=== PATIENT | female | born 1950 | race African-American/Black ===

== ENCOUNTER 2018-12-21 19:30 | Inpatient (IN) | payer OTHER ==
[~2018-12-21] VITALS: Ht 160 cm; Wt 83.0 kg
[2018-12-21 19:31] VITALS: BP 170/117
[2018-12-21 20:33] LABS: ABSOLUTE NEUTROPHILS 6.8 thou/uL (1.4-8.2); BASOPHILS 1.4 % (0.0-2.0); EOSINOPHILS 4.4 % (0.0-3.0); HEMOGLOBIN 10.8 gm/dL (12.0-15.0); LYMPHOCYTES 29.6 % (24.0-44.0); MCH 26.7 pg (26.0-34.0); MCHC 31.9 g/dL (28.0-37.0); MCV 83.7 fL (80.0-100.0); MONOCYTES 3.9 % (1.0-8.0); PLATELET COUNT 409 thou/uL (150-400); POLYS 60.7 % (36.0-66.0); RBC 4.06 mil/uL (4.20-5.00); RDW 14.4 % (10.5-14.5); WBC 11.2 thou/uL (4.0-11.0)
[2018-12-21 20:41] LABS: CREATININE 1.7 mg/dL (0.6-1.0); POTASSIUM 4.1 mmol/L (3.5-5.1)
[2018-12-21 20:49] LABS: TROPONIN-I 0.23 ng/mL (<0.06)
[2018-12-21 22:10] VITALS: BP 139/58
[2018-12-21 23:51] LABS: CHOLESTEROL 140 mg/dL (<200); HDL CHOLESTEROL 49 mg/dL (>40); LDL CHOLESTEROL 62 mg/dL (<100); TC:HDL 2.9 Ratio (Not establshd); TRIGLYCERIDE 149 mg/dL (<150); VLDL 30 mg/dL (<40)
[2018-12-22] VITALS (29 sets, daily range): BP systolic 104–174; BP diastolic 44–123
[2018-12-22 00:06] LABS: SERUM ASSESSMENT Clear
[2018-12-22] MEDS ORDERED: HYDROCHLOROTH12.5 M1 PO (03:54)
[2018-12-22] MEDS ORDERED: NIFEDIPINE ER90 MG PO (03:54)
[2018-12-22] MEDS ORDERED: LOPRESSOR50 PO (03:54)
[2018-12-22] MEDS ORDERED: ROSUVASTATIN CA10 MG PO (03:55)
[2018-12-22] MEDS ORDERED: ASPIR 8181 MG PO (03:55)
[2018-12-22] MEDS ORDERED: COZAAR 25 MG TA25 M1 PO (03:55)
[2018-12-22] MEDS ORDERED: NOVOLIN N100 UNIT/1 (04:04)
[2018-12-22] MEDS ORDERED: NOVOLIN R100 UNIT/1 (04:05)
--- NOTE | 2018-12-22 05:20 | NUR ---
RECEIVED REPORT FROM SHIRLENE ED RN AROUND 2142.PATIENT ARRIVED TO ROOM 215 AROUND 2200 ACCOMPANIED BY HER .COMPLAIN OF CHEST PAIN RATES 8.NITROGLYCERIN SL GIVEN X 2.PARTIAL PAIN RELIEF BUT PAIN COMES BACK.DOESN'T WANT TO TRY MORE OF NTG DUE TO SIDE EFFECT.MORPHINE GIVEN.TROPONIN IS TRENDING UP.DR GAGE WAS CALLED.NO NEW ORDERS BUT WILL SEE PATIENT IN THE MORNING.SPO2 IS IN THE 85% PLACED ON O2 2L NC THEN EVENTUALLY TO 4L NC.SERAFIN CHANDRA WAS HERE TO SEE PATIENT.NPO SINCE MIDNIGHT.MONITOR SHOWS SR.WILL CONTINUE POC.
--- NOTE | 2018-12-22 11:55 | EKG ---
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 12/22/18 1155 53 53 Grey Kendall MD, FAC /EPI
--- NOTE | 2018-12-22 12:06 | 2DMMODE ---
[facility] [address] [place] [address] 2 D/M-MODE ECHOCARDIOGRAM Name: MARTHA ESTES Room #: 215-P [facility] IN .R.#: [id number] Admission: 12/21/18 Attend Phys: Thierry Muro, Discharge: Date of : 48 Report #: [id number] THIS REPORT FOR: //name// APPROVED REPORT Study performed: 12/22/2018 09:47:01 EXAM: Comprehensive 2D, Doppler, and color-flow Echocardiogram Patient Location: Bedside Room #: [facility] Status: on-call BSA: 1.84 HR: 84 bpm BP: 141/55 mmHg Rhythm: NSR Other Information Study Quality: Adequate Technically limited study due to patient's pain and nausea. Risk Factors: Cardiac Risk Factors: HTN, Hyperlipidemia, DM, FHX of CAD Indications Dyspnea Chest Pain NSTEMI 2D Dimensions IVSd: 10.94 (7-11mm) LVOT Diam: 16.70 (18-24mm) LVDd: 36.68 mm Sinus of Valsalva: 17.00 mm PWd: 10.70 (7-11mm) Ascending Ao: 23.49 (22-36mm) LVDs: 24.98 (25-40mm) Aortic Root: 26.96 mm LV Single Plane 4CH: 67.68 % LV Single Plane 2CH: 58.84 % Biplane EF: 65.6 % Volumes Left Atrial Volume (Systole) Single Plane 4CH: 55.19 mL Single Plane 2CH: 40.12 mL LA ESV Index: 29.00 mL/m2 Aortic Valve [facility] [address] 2 D/M-MODE ECHOCARDIOGRAM Name: ESTESMARTHA M Room #: 215-P [facility] IN ..#: [id number] Admission: 12/21/18 Attend Phys: Thierry Muro, Discharge: Date of : 48 Report #: [id number] AoV Peak Louis.: 1.87 m/s AO Peak Gr.: 14.13 mmHg LVOT Max P.00 mmHg LVOT Max V: 1.00 m/s ANGELES Vmax: 1.17 cm2 AI Vmax: 4.11 m/s AI Heard: 2.63 m/s2 AI PHT: 468.57 ms Mitral Valve E/A Ratio: 0.7 MV Decel. Time: 270.86 ms MV E Max Louis.: 1.00 m/s MV A Louis.: 1.45 m/s MV PHT: 78.55 ms IVRT: 69.20 ms TDI E/Lateral E': 14.29 E/Medial E': 11.11 Medial E' Louis.: 0.09 m/s Lateral E' Louis.: 0.07 m/s Pulmonary Valve PV Peak Louis.: 0.93 m/s PV Peak Gr.: 3.50 mmHg Pulmonary Vein P Vein S: 0.67 m/s P Vein A: 0.27 m/s P Vein D: 0.40 m/s P Vein A Dur.: 76.1 msec P Vein S/D Ratio: 1.67 Tricuspid Valve TR Peak Louis.: 3.47 m/s RAP Estimate: 7.00 mmHg TR Peak Gr.: 48.05 mmHg PA Pressure: 55.00 mmHg Left Ventricle The left ventricle is normal size. There is normal LV segmental wall motion. There is normal left ventricular wall thickness. The left ventricular systolic function is normal. The left ventricular ejection fraction is within the normal range. LVEF is 60-65%. Mild diastolic dysfunction is present (impaired relaxation pattern). Right Ventricle The right ventricle is normal size. The right ventricular systolic function is normal. [facility] [address] [place] [address] 2 D/M-MODE ECHOCARDIOGRAM Name: MARTHA ESTES Room #: 215-P [facility] IN [facility]#: [id number] Admission: 12/21/18 Attend Phys: Thierry Muro, Discharge: Date of : 48 Report #: [id number] Atria The left atrium size is normal. The right atrium size is normal. Aortic Valve The aortic valve is mildly calcified Mild to moderate aortic regurgitation. There is no aortic valvular stenosis. Mitral Valve There is mitral annular calcification. Mild mitral regurgitation. No evidence of mitral valve stenosis. Tricuspid Valve The tricuspid valve is normal in structure. Mild tricuspid regurgitation. Pulmonary artery pressure is 50 mmHg. Pulmonic Valve The pulmonary valve is normal in structure. There is no pulmonic valvular regurgitation. Great Vessels The aortic root is normal in size. The ascending aorta is normal in size. IVC is normal in size and collapses >50% with inspiration. Pericardium There is no pericardial effusion. <Conclusion> The left ventricular systolic function is normal. There is normal LV segmental wall motion. LVEF is 60-65%. Mild diastolic dysfunction The aortic valve is mildly calcified, no stenosis. Mild to moderate aortic regurgitation. There is mitral annular calcification. Mild mitral regurgitation. Mild tricuspid regurgitation. Pulmonary artery pressure of 50 mmHg. There is no pericardial effusion. <ELECTRONICALLY SIGNED> By: Grey Kendall MD, FACC 12/22/18 1205 1205 1205 Grey Kendall MD, FACC /INF
--- NOTE | 2018-12-22 14:15 | NUR ---
PT ALERT AND ORIENTED THIS MORNING. RECEIVED PRN PAIN MED FOR CHEST PAIN WITH PARTIAL RELIEF. CRITICAL LAB REPORTED TO [place]. CO FOUNDER AND CTO. WENT FOR STENT PLACEMENT THIS AM. ORDERS GIVEN TO TRANSFER PT TO ICU. REPORT CALLED IN TO ADALBERTO RILEY.
--- NOTE | 2018-12-22 14:18 | NUR ---
Patient arrived to ICU room 237 post cardiac cath. Upon arrival patient was nauseated, vomitting thin, clear emesis. Pressure held to right groin site during vomitting episode. Small hemotoma to right groin, continue hard pressure continued for 15 minutes by analyst microbiology lab staff. Assessed by analyst microbiology lab staff and RN, hematoma lessened. Will continue with frequent groin site checks per protocol and instructed patient to alert nursing of any new changes. and son at bedside. Continue to monitor closely.
--- NOTE | 2018-12-22 14:31 | CATHLAB ---
[facility] [address] [place] [address] INVASIVE PROCEDURE REPORT Name: MARTHA ESTES Room #: 237-P [facility] IN [facility]#: [id number] Admission: 12/21/18 Attend Phys: Thierry Muro, Discharge: Date of : 48 Report #: [id number] THIS REPORT FOR: //name// APPROVED REPORT Study performed: 12/22/2018 11:30:06 Patient Details Patient Status: In-Patient Room #: 215 The patient is a 67 year-old female Event Personnel Grey Kendall Molding Plasterer, Terry Tilley RN RN, Mari Llamas RTR, BRAKESHOE REPAIRER Monitor, Ozzy Richey RTR Scrub, Kimberly Griffith RTR Scrub Procedures Performed Art Access - R femoral artery* Left Heart Cath w/or w/o Coronaries [id number] [facility] w/wo Plasty Single CIRC [id number] Hemostasis w/ Angioseal Indication Chest pain Procedure Narrative The patient was brought urgently to the Cardiac Catheterization Laboratory and was prepped and draped in a sterile manner. The Right Groin^ was infiltrated with 1% Lidocaine subcutaneous anesthesia. A PINNACLE 6FR Sheath #[id number] sheath was inserted into the RFA^. Coronary angiography was performed using coronary diagnostic catheters. The right coronary system was accessed and visualized with a JR4 catheter. The left coronary system was accessed and visualized with a JL4 catheter. Left ventricular/Aortic Valve gradient assessed via catheter pullback. Closure device was deployed with a 6 Fr ANGIOSEAL 6FR #[id number]. There was no hematoma. Intraoperative Conscious Sedation No sedation given. Fluoro Time: 7.23 minutes Dose: DAP 55007.70 cGycm2 1705 mGy Contrast Type and Amount: Omnipaque 145 ml Coronary Angiography The patient's coronary anatomy is co- dominant. [facility] [place] [address] INVASIVE PROCEDURE REPORT Name: MARTHA ESTES Room #: 237-P [facility] IN [facility].#: [id number] Admission: 12/21/18 Attend Phys: Thierry Muro, Discharge: Date of : 48 Report #: [id number] Diagnostic Cath Left Main Normal left main LAD Minimal plaquing in the midportion of the left anterior descending Diagonal 1 Small first diagonal branch, angiographically normal Diagonal 2 Small second diagonal branch, angiographically normal Circumflex Critical 99% stenosis in the proximal circumflex. ELIZABETH 2 flow OM1 Large first marginal branch, angiographically normal OM2 Distally arising second marginal branch, mild plaquing Right Coronary Long tubular 75-80% stenosis involving most of the midportion of the right coronary R PDA Moderate size posterior descending branch, mild plaquing Left Ventriculography Left Ventriculography was not performed. Hemodynamics The aortic pressure is 134/56 mmHg with a mean of 81 mmHg. The left ventricular pressure is 160/40 mmHg with a mean of mmHg. The left ventricular end diastolic pressure is 41 mmHg. PCI Technique Lesion Anticoagulation was achieved with Heparin, Integrilin. Patient was preloaded with Effient. Percutaneous coronary intervention was performed on the proximal circumflex artery segment. The lesion stenosis prior to intervention was 99% with ELIZABETH 2 flow. A LAUNCHER 6FR EBU 3.5 #[id number] Guide Catheter was used to engage the ostium. A Luge Wire .014 x 182CM #[id number] Interventional Guidewire was used to cross the lesion. BALLOON DILATION A Balloon catheter Euphora RX 2.25 x 15 #[id number] was inserted and inflated up to 16.00atm for 31seconds. Repeat angiography revealed the following post-dilatation results: moderate residual stenosis. Additional Inflation: 16.00atm for 18seconds. STENT DEPLOYMENT A drug-eluting stent RESOLUTE MAYELA RX 2.5 X 18 #[id number] was inserted and inflated up to 16.00atm for 32seconds. POST STENT DEPLOYMENT BALLOON DILATION [facility] [address] [place] [address] INVASIVE PROCEDURE REPORT Name: MARTHA ESTES Room #: 237-P [facility] IN ..#: [id number] Admission: 12/21/18 Attend Phys: Thierry Muro, Discharge: Date of : 48 Report #: [id number] A Balloon catheter TREK NC RX 2.5 X 15 #[id number] was inserted and inflated up to 20.00atm for 30seconds. Additional Inflation: 22.00atm for 28seconds. A Balloon catheter Trek NC RX 2.75 x 12 was inserted and inflated up to 22 erin for 32 seconds. Additional inflation: 22 erin for 30 seconds. Additional inflation: 22 erin for 20 seconds. Final angiography reveals 0 % stenosis with ELIZABETH 3 flow. Conclusion 1. Congestive heart failure; significantly elevated left heart filling pressures 2. Normal left main 3. Normal LAD 4. Critical proximal codominant circumflex. 99% treated with a 2.5 x 18 mm Resolute stent, post-dilated to 2.9mm 5. Codominant right coronary with long tubular 75-80% mid vessel stenosis. This will be followed closely, consider intervention at a later date. Recommendations Cardiac Rehabilitation Referral Aggressive Medical Therapy <ELECTRONICALLY SIGNED> By: Grey Kendall MD, [facility] 12/22/18 1431 143 143 Grey Kendall MD, [facility] /INF
--- NOTE | 2018-12-22 18:54 | NUR ---
PATIENT ALERT AND ORIENTED X4, NO COMPLAINTS OF PAIN. ON 3L NASAL CANNULA. TOLERATING DIET WITH NO NAUSA/VOMITING. GIANG PATENT AND DRAINING. BLOOD SUGAR MONITORED. RIGHT GROIN SITE SHOWED NO INCREASED BLEEDING. SMALL HEMATOMA PRESENT. PATIENT AND FAMILY EDUCATED ON THE PLAN OF CARE. NO SIGNS OF ACUTE DISTRESS NOTED AT THIS TIME. WILL CONTINUE TO MONITOR.
[2018-12-23] VITALS (19 sets, daily range): BP systolic 116–160; BP diastolic 30–78
[2018-12-23 01:07] LABS: GLYCOHEMOGLOBIN (HGB A1C) 6.6 % (4.8-5.6)
--- NOTE | 2018-12-23 04:58 | NUR ---
RECEIVED REPORT FROM OSVALDO GLOVER AND ASSUMED PATIENT CARE AT 1900. PATIENT AAOX4 AND NOTED TO BE SR ON THE MONITOR. PATIENT ASSESSED POST CATH PROCEDURE ORDERED. NO NEW SIGNS OF BLEEDING OR HEMATOMA NOTED. PATIENT ONLY COMPLAINED OF PAIN ONCE 5/10 AT SITE AND HYDROCODONE GIVEN. PATIENT HAD NO FURTHER C/O NAUSEA. VS REMAINED STABLE AND NO ACUTE EVENTS OCCURRED. PATIENT AND FAMILY UPDATED ON CARE PLAN AND EDUCATED ON PROCEDURE. HOURLY ROUNDING COMPLETED AND PATIENT MONITORED CLOSELY THROUGHOUT THIS SHIFT.
[2018-12-23 05:17] LABS: HEMATOCRIT 27.5 % (37.0-47.0); MCH 27.3 pg (26.0-34.0); MCHC 32.7 g/dL (28.0-37.0); MCV 83.6 fL (80.0-100.0); RBC 3.29 mil/uL (4.20-5.00); RDW 13.9 % (10.5-14.5); WBC 10.3 thou/uL (4.0-11.0)
[2018-12-23 05:34] LABS: ALBUMIN 3.2 g/dL (3.4-5.0); CALCIUM 9.1 mg/dL (8.5-10.1); CREATININE 2.5 mg/dL (0.6-1.0); MAGNESIUM 1.7 mg/dL (1.8-2.4); POTASSIUM 4.2 mmol/L (3.5-5.1); TOTAL BILIRUBIN 0.7 mg/dL (<0.1-1.0); TOTAL PROTEIN 7.3 g/dL (6.4-8.2)
[2018-12-23 05:36] LABS: TROPONIN-I 4.89 ng/mL (<0.06)
--- NOTE | 2018-12-23 10:40 | NUR ---
Pt is alert, oriented x4. No C/O chest pain. LS clear. O2 sat 93 to 95% w/ 4L of oxygen. NSR on monitor. SBP was maintained bewteen 140 to 150s. This nurse heard murmur on R stermum & 2nd Intercostal location but pt stated that she did not have murmur. No edema present. 2/[address] Will discontinue per order. 1000-Consult was notified and Dr. Sanchez returned to the call
--- NOTE | 2018-12-23 12:24 | EKG ---
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: FREDRICK : 1950 Requested By: Grey Kendall Order Number: [id number] MD: Grey Kendall Measurements Intervals [place] Rate: 73 P: 70 [place]: 140 QRS: 68 QRSD: 89 T: 106 QT: 381 QTc: 420 Interpretive Statements Sinus rhythm Nonspecific ST segment abnormality Compared to ECG 12/21/2018 19:54:07 Nonspecific change in the ST and T-wave segments Electronically Signed On 12-23-2018 12:24:36 CDT by Grey Kendall [email or web address] <ELECTRONICALLY SIGNED> By: Grey Kendall MD, [facility] 12/23/18 1224 1417 1417 Grey Kendall MD, [facility] /EPI
--- NOTE | 2018-12-23 12:30 | EKG ---
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 Representative Uniforms: Kathy LARKIN : 1950 Requested By: Grey Kendall Order Number: [id number] MD: Grey Kendall Measurements Intervals [place] Rate: 82 P: 67 [place]: 129 QRS: 62 QRSD: 95 T: 104 QT: 354 QTc: 414 Interpretive Statements Sinus rhythm Nonspecific ST segment abnormality Compared to ECG 12/21/2018 19:54:07 ST segment abnormality is less pronounced Electronically Signed On 12-23-2018 12:30:00 CDT by Grey Kendall [email or web address] <ELECTRONICALLY SIGNED> By: Grey Kendall MD, [facility] 12/23/18 1230 0829 8 Grey Kendall MD, [facility] /EPI
--- NOTE | 2018-12-23 16:40 | NUR ---
Andressa note: 1500-Pt was informed to be transferred to #210 1600-Report was given to CCU RN and pt was transferred to CCU, #210. Pt was stable. VSS. Pt's all belongins were w/ pt. Pt was transferred by CCU bed w/ CCU monitor. Dressing from R groin are was removed prior to the transfer. Family member accompanied pt during the transfer.
--- NOTE | 2018-12-23 17:27 | NUR ---
PATIENT ARRIVED FROM TIMBER REPAIRER, ALERT AND ORIENTED X4. EMOTIANAL AND TEARY EYES FAMILY AT BEDSIDE COMFORTING HIM. RT GRION SITE D/C/I. MORNING MEDS GIVEN, BP STABLE, SEE POST CARDIAC VS. ADMISSION COMPLETED AND WILL CONTINUE WITH POC.
[2018-12-24] VITALS (22 sets, daily range): BP systolic 112–163; BP diastolic 44–91
[2018-12-24 05:16] LABS: HEMATOCRIT 26.7 % (37.0-47.0); HEMOGLOBIN 8.5 gm/dL (12.0-15.0); MCH 26.8 pg (26.0-34.0); MCHC 31.8 g/dL (28.0-37.0); MCV 84.2 fL (80.0-100.0); RBC 3.18 mil/uL (4.20-5.00); RDW 14.1 % (10.5-14.5); WBC 14.9 thou/uL (4.0-11.0)
[2018-12-24 05:28] LABS: ABSOLUTE RETIC COUNT 0.1249 10^6/uL; OBSERVED RETIC COUNT 3.96 % (0.6-2.6)
[2018-12-24 05:33] LABS: CALCIUM 8.3 mg/dL (8.5-10.1); MAGNESIUM 2.2 mg/dL (1.8-2.4); PHOSPHORUS 4.8 mg/dL (2.5-4.9); POTASSIUM 4.6 mmol/L (3.5-5.1)
[2018-12-24 05:35] LABS: % SATURATION 7 % (20-39); IRON 22 ug/dL (50-170); TIBC 297 ug/dL (250-450)
[2018-12-24 05:36] LABS: CREATININE 4.1 mg/dL (0.6-1.0)
[2018-12-24 06:04] LABS: FOLIC ACID 19.7 ng/mL (8.6-58.9)
--- NOTE | 2018-12-24 08:24 | NUR ---
ASSESSMENTS CHARTED, MEDS CHARTED. TRANSFERED FROM ICU TO CCU DURING DAY. PATIENT'S GIANG WAS OUT DURING AFTERNOON, PATIENT HAD ONLY HAD MINIMAL URINE OUT SINCE ARRIVAL. AWARE OF LOW URINE OUTPUT. PATIENT HAD FLUID RUNNING UNTIL SHE STARTED TO C/O SOB, SOUNDED WET IN BASES, STOPPED FLUIDS, RECEIVED ORDERS FROM ANASTACIO. IV WAS DISLODGED, MULTIPLE ATTEMPTS WERE TRIED TO NO AVAIL. CXR SHOWED NEW INTERSTITIAL PULM EDEMA. LABS SHOWED INCREASED CREATININE. LEFT MESSAGE FOR VASCULAR ACCESS. WAITING FOR NEPHROLOGY DOCTOR TO ADVISE NEXT COURSE OF TREATMENT. GAVE REPORT TO DAY NURSE TO CONTINUE CARE.
--- NOTE | 2018-12-24 08:52 | EKG ---
[address] [place] [address] ELECTROCARDIOGRAM REPORT Name: MARTHA ESTES Room #: 210- ADM IN M.R.#: [id number] Admission: 12/21/18 Attend Phys: Halina Jeronimo MD Discharge: Date of : 48 Report #: [id number] THIS REPORT FOR: //name// [facility] Test Date: 2018-12-24 Test Time: 08:06:53 Pat Name: MARTHA ESTES Department: Room: 210 Gender: F Boiler Operator: MARYBEL : 1950 Requested By: Grey Kendall Order Number: [id number] MD: Grey Kendall Measurements Intervals [place] Rate: 83 P: 63 [place]: 129 QRS: 72 QRSD: 99 T: 67 QT: 381 QTc: 448 Interpretive Statements Sinus rhythm Nonspecific ST segment abnormality Compared to ECG 12/23/2018 08:29:09 No significant change was found Electronically Signed On 12-24-2018 8:51:52 CDT by Grey Kendall [email or web address] <ELECTRONICALLY SIGNED> By: Grey Kendall MD, [facility] 12/24/18 0851 5 5 Grey Kendall MD, [facility] /EPI
--- NOTE | 2018-12-24 09:43 | NUR ---
VAT CONSULTED FOR A PICC FOR THIS PT. 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 WILL REVIEW HER LABS SHE IS A CKD3 AND MAY NEED A CL OVER A PICC. PT IS STABLE AND IS ABLE TO GET LASIX.
--- NOTE | 2018-12-24 10:57 | NUR ---
Assess due to pt admit with chest pain, nstemi, hx diabetes, htn, hyperlipidemia. STANISLAW s/p contrast, creatinine rising. Renal following. Pt states no significant wt changes. Appetite is usually good but down 25-50% past few days. Would like to trial some glucerna shakes until appetite returns-will order. Low nutrition risk
--- NOTE | 2018-12-24 11:28 | NUR ---
ASSUMED CARE AT SHIFT CAHNGE, ALERT AND ORIENTED X4. PATIENT SOB AND BREATHING 28-30/MIN. DR GOLDEN AT BEDSIDE AND ORDERS CL TO BE INSERTED AFTER SEVERAL PIV ATTEMPTS FAILED. PO LASIX GIVEN. IV TEAM INSERTED A PIV, IV LASIX GIVEN AND GIANG CATH INSERTED FOR ACCURATE I&O. AND WILL CONTINUE WITH POC.
--- NOTE | 2018-12-24 14:24 | NUR ---
VAT CONSULTED FOR CENTRAL ACCESS FOR THIS PT. CREAT 4.1 GFR 13. FAM HX OF ESRD WITH DIALYSIS. PLACED A 20G 2.5 INCH PIV IN RT CEPHALIC THIS AM FOR LASIX PT WAS STABLE. ONLY IV MEDS WERE LASIX. ADVISED RN TO CALL IF PT TSF TO ICU AND A CL WOULD BE PLACED. PT TSF TO 243 AND TIME OUT DONE WITH RN AT . PT HAD CONSENTED PRIOR. PER POLICY FOR CKD3 PT STATUS A CL PLACED RT IJ X1 ATTEMPT WITH US GUIDE. LINE TRIMMED AT 24CM AND INSERTED TO 18CM WITH A BRISK BLOOD RETURN. CXR REVEALED TIP AT THE CAJ/RT ATRIAL APPENDAGE. TOWARDS END OF PROCEDURE PT BECAME ANXIOUS DUE TO THE STERILE DRAPE COVERING HER, LINE DRESSING REINFORCED AND WILL CHANGE ONCE PT IS CALMED.
[2018-12-24 15:04] LABS: BE(vivo) -8.7 mmol/L (-2 to +3); PCO2 36.1 mmHg (35.0-45.0); PO2 89.7 mmHg (80.0-100.0)
[2018-12-24 15:05] LABS: pH 7.292 (7.360-7.450)
--- NOTE | 2018-12-24 15:10 | NUR ---
TRANSERRED TO ICU THIS AT 1226 FROM CCU BY WHEELCHAIR. PT VERY SOA ON ARRIVAL O2 SATS IN 70'S. TITRATED O2 UP TO 15L/NC AND O2 SATS IMPROVED TO 90'S. IV TEAM HERE TO CENTRAL LINE PLACEMENT. FOLLOWING CENTRAL LINE PLACEMENT PT VERY RESTLESS, THRASHING IN BED, O2 SATS DECREASED TO 60'S, HR DECREASED TO 50'S. DR GOLDEN AND LEONADR PAGED AND UPDATED. PLACED ON BIPAP. O2 SATS INCREASED TO 99% AND HR INCREASED TO 70'S. CONSULT PLACED TO PULMONARY. PT NOW RESTING WITH RR IN 20'S AND STABLE O2 SATS. TO CHECK ABG PER ORDER. WILL CONTINUE TO MONITOR PATIENT.
--- NOTE | 2018-12-24 19:42 | NUR ---
DECREASED HOURLY URINE OUTPUT. DR GOLDEN NOTIFIED. ORDER RECIEVED FOR TEMPORARY DIALYSIS CATHETER PLACEMENT AND DIALYSIS. TO I.R. FOR DIALYSIS LINE PLACEMENT AND DIALYSIS INITIATED BY TELEGRAPH REPEATER TECHNICIAN ON RETURN. PT'S FAMILY AT BEDSIDE AND UPDATED.
[2018-12-24 22:00] LABS: HCO3 24.6 mmol/L (22.0-26.0); PCO2 34.8 mmHg (35.0-45.0); PO2 377.6 mmHg (80.0-100.0); pH 7.467 (7.360-7.450); sO2 99.8 % (92.0-98.0)
[2018-12-25] VITALS (24 sets, daily range): BP systolic 99–172; BP diastolic 35–68
[2018-12-25 05:25] LABS: ABSOLUTE NEUTROPHILS 8.8 thou/uL (1.4-8.2)
[2018-12-25 05:30] LABS: BASOPHILS 0.4 % (0.0-2.0); EOSINOPHILS 0.4 % (0.0-3.0); HEMATOCRIT 20.4 % (37.0-47.0); HEMOGLOBIN 6.9 gm/dL (12.0-15.0); LYMPHOCYTES 12.1 % (24.0-44.0); MCH 28.3 pg (26.0-34.0); MCHC 34.1 g/dL (28.0-37.0); MONOCYTES 7.2 % (1.0-8.0); POLYS 79.9 % (36.0-66.0); RBC 2.46 mil/uL (4.20-5.00); RDW 13.8 % (10.5-14.5); WBC 10.9 thou/uL (4.0-11.0)
[2018-12-25 05:34] LABS: ALBUMIN 2.6 g/dL (3.4-5.0); CREATININE 3.3 mg/dL (0.6-1.0); POTASSIUM 4.1 mmol/L (3.5-5.1)
[2018-12-25 05:40] LABS: PLATELET COUNT 255 thou/uL (150-400)
--- NOTE | 2018-12-25 06:00 | NUR ---
PT AWAKE AND ALERT. SLE[PT MOST OF NOCT. DIALYSIS LAST NOCT. 2 LITERS REMOVED. WILL BE DIALYSES THIS AM. LUNGS DIMINISHED AND ESS CLEAR. 60 CC UO THIS SHIFT. A VERY DELIGHTFUL LITTLE LADY. WILL CONT TO MONITOR
--- NOTE | 2018-12-25 07:36 | NUR ---
Renal U/S at bedside. Dr. Hernández on rounds. Will recheck H/H prior to start of hemoodialysis d/t inconsistancy w/ previous labs. If <7.0, transfuse.
[2018-12-25 08:09] LABS: HEP B SURFACE Ab(ANTI-HBS Non Reactive (()); HEPATITIS B SURFACE AG Negative (Negative)
[2018-12-25 09:00] LABS: HEMOGLOBIN 6.9 gm/dL (12.0-15.0)
--- NOTE | 2018-12-25 09:48 | NUR ---
patient admits with chest pain, rec cardiac cath, transferred to ICU then CCU. While at CCU developed worsening renal fuction and dyspnea. She transfer to ICU, currently on BIPAP and rec new tx of dialysis. Rn reports no phone numbers for family which she plans to obtain today when off BIPAP. 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 CM following for dc planning.
--- NOTE | 2018-12-25 10:26 | NUR ---
Hemoglobin 6.9; 1 unit PRBCs given by Zach RILEYalumina refinery operator nurse as ordered.
--- NOTE | 2018-12-25 19:34 | NUR ---
Shift summary: Oriented x 4. Pain controlled. Medicated x 1 with Hydrocodone for headache pain. VSS. Afebrile. SR. O2 5L NC. Lungs clear with DBS bases. Tolerating diet, poor appetite. Renteria with 180ml uop this shift. Hemodialysis treatment #2 today, 2L removed. 1u PRBCs given for Hgb 6.9 by steffen house supervisor. Up to commode and chair for bath this evening, tolerated well. Pt states she feels exhausted. Plan of care reviewed and updated as able.
[2018-12-26] VITALS (20 sets, daily range): BP systolic 99–160; BP diastolic 39–67
[2018-12-26 06:10] LABS: ALBUMIN 2.6 g/dL (3.4-5.0); CALCIUM 8.2 mg/dL (8.5-10.1); CREATININE 3.3 mg/dL (0.6-1.0); PHOSPHORUS 4.3 mg/dL (2.5-4.9); POTASSIUM 3.7 mmol/L (3.5-5.1)
[2018-12-26 06:17] LABS: HEMATOCRIT 28.6 % (37.0-47.0); MCHC 32.1 g/dL (28.0-37.0); MCV 83.9 fL (80.0-100.0); RBC 3.41 mil/uL (4.20-5.00); RDW 13.9 % (10.5-14.5)
[2018-12-26 06:34] LABS: HEMOGLOBIN 9.2 gm/dL (12.0-15.0)
--- NOTE | 2018-12-26 14:09 | NUR ---
DC planning visit made with pt and spouse at bedside. Pt is currently in ICU. She is feeling better today. Spouse's contact number confirmed as their home phone. Dtr Jerrica to be added if we can't reach Calvin. Pt is a&ox4 and indicates that she was indep with gait and adl's prior to admission. She does not have any dme,hh or snf history. She reports struggling with the 10 steps to enter the home and 7 steps up to their bedroom. Each set has a handrail. 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 She is currently down to 2lnc O2 and bipap prn. Her spouse does the driving. She is receptive to HH or SNF if needed. Medicare options discussed. She denies HH preference. She is familiar with [facility] [place]. PT/OT evals pending. Will follow.
--- NOTE | 2018-12-26 17:50 | NUR ---
Shift summary: Pt making steady progress. Neuro intact. Up in chair x 6 hours today. Denies pain. PT/OT order rec'd. NSR. VSS. Afebrile. No edema. s/p Stent CX. Effient alone. No aspirin secondary to anemia. H/H stable. O2 titrated down to 3L. Lungs clear with diminished breath sounds in the bases. Tolerating diet, appetite improving. Accucheck achs. Has not had BM since admission. Renteria with 700ml pale yellow urine this shift. Lasix 60mg IV BID started this am. Hemodialysis held this am. Plan of care reviewed and updated as able. OK's per Siri Ring, Linda, Edgar, and Marlon for pt to transfer out to CCU. Awaiting bed assignment.
--- NOTE | 2018-12-26 18:35 | NUR ---
Report called to Yeny RILEY on CCU. Pt to transfer to room 214p. Family notified of transfer.
--- NOTE | 2018-12-26 22:43 | NUR ---
ASSUMED PT CARE AT 1900 WITH NO SIGN 0F DISTRESS NOTED, PT IS ALERT AND ORIENTED. DENIES ANY NEEDS AT THIS TIME. ASSESSMENT COMPLETED AND CHARTED. PT IS STABLE. DENIES ANY PAIN. SCHEDULED MEDS ADMINISTERED TO PT. PT TOLERATED PO INTAKE. REPORT IS GIVEN TO THE RELEVING RN AT 2230.
[2018-12-27 05:21] VITALS: BP 112/88
[2018-12-27 06:06] LABS: HEMATOCRIT 32.1 % (37.0-47.0); HEMOGLOBIN 10.5 gm/dL (12.0-15.0); MCH 27.3 pg (26.0-34.0); MCHC 32.7 g/dL (28.0-37.0); MCV 83.6 fL (80.0-100.0); RBC 3.84 mil/uL (4.20-5.00); RDW 13.9 % (10.5-14.5); WBC 12.1 thou/uL (4.0-11.0)
[2018-12-27 06:31] LABS: ALBUMIN 2.7 g/dL (3.4-5.0); CALCIUM 8.6 mg/dL (8.5-10.1); PHOSPHORUS 4.3 mg/dL (2.5-4.9)
[2018-12-27 07:49] VITALS: BP 155/51
[2018-12-27 12:21] VITALS: BP 151/64
--- NOTE | 2018-12-27 14:58 | NUR ---
Case discussed with the care team. Pt evaluated by therapy today and did well. Hoping to dc to home when medically ready. Pt still on 3liters of o2 and hoping to wean off prior to dc. Will reassess for possible hh referral tomorrow.
--- NOTE | 2018-12-27 15:33 | NUR ---
ASSESSMENT CHARTED. PT ALERT AND ORIENTED. VSS. REPORT HAVING LEFT HIP AND LEG PAIN. PRN MUSCLE RELAXER GIVEN WITH NO RELIEF. DR. BRUCE NOTIFIED. WILL CONTINUE TO MONITOR.
[2018-12-27 16:30] VITALS: BP 161/70
[2018-12-27 19:45] VITALS: BP 153/50
[2018-12-28 00:04] VITALS: BP 166/67
--- NOTE | 2018-12-28 04:25 | NUR ---
ASSESSMENT DOCUMENTED.PT BEEN RESTING IN BED.A/OX4.VSS.C/O PAIN TO LEFT LEG,XRAY TO FEMUR AND US VENOUS ORDERED.NO THROMBOSIS OR FX NOTED ON XRAY.PAIN MEDS GIVEN PER ORDERS WITH PARTIAL RELEIF.MUSCLE RELAXER GIVEN WELL HEATING PAD THAT RELIEVES PAIN SOME MORE.PT STATES FEELS LIKE SHE HAS PULLED MUSCLE.NO SWELLING OR CHANGE IN COLOR NOTED.SENSATION INTACT.2+ PULSES PRESENT.ON O2 AT 2LITERS PNC,NO RESP DSITRESS.PT DENIES ANY OTHER NEEDS AT THIS TIME.WILL CONT TO MONITOR PER POC.
[2018-12-28 04:45] VITALS: BP 159/59
[2018-12-28 05:09] LABS: ALBUMIN 2.9 g/dL (3.4-5.0); CALCIUM 9.1 mg/dL (8.5-10.1); CREATININE 2.5 mg/dL (0.6-1.0); PHOSPHORUS 5.4 mg/dL (2.5-4.9); POTASSIUM 4.3 mmol/L (3.5-5.1)
[2018-12-28 07:42] VITALS: BP 155/61
[2018-12-28 08:23] LABS: HEMATOCRIT 32.1 % (37.0-47.0); HEMOGLOBIN 10.4 gm/dL (12.0-15.0); MCH 27.3 pg (26.0-34.0); MCHC 32.3 g/dL (28.0-37.0); MCV 84.7 fL (80.0-100.0); RBC 3.79 mil/uL (4.20-5.00); WBC 15.4 thou/uL (4.0-11.0)
[2018-12-28 11:11] VITALS: BP 149/56
[2018-12-28 14:59] VITALS: BP 147/62
--- NOTE | 2018-12-28 17:06 | NUR ---
PT ALERT AND ORIENTED. VSS. REPORT HAVING LEFT KNEE PAIN. PRN PAIN MED GIVEN WITH PARTIAL RELIEF. MD AWARE. NEW ORDERS NOTED. WILL CONTINUE TO MONITOR.
[2018-12-28 19:34] VITALS: BP 120/42
[2018-12-29 03:50] VITALS: BP 118/37
--- NOTE | 2018-12-29 05:08 | NUR ---
ASSESSMENT DOCUMENTED.PT BEEN RESTING IN NO ACUTE DISTRESS.A/OX4.VSS.O2 AT 1LITERS PNC,SATS [place].VOIDING PER BSC.PAIN MEDS GIVEN FOR LEFT LEG WITH PARTIAL RELIEF.HEATING PAD OFFERED.PT STATED PAIN TO LEFT LEG IS BETTER CONTROLLED THAN IT WAS YESTERDAY.POC IS TO CONT TO MONITOR PER POC.
[2018-12-29 06:31] LABS: ALBUMIN 2.6 g/dL (3.4-5.0); CALCIUM 9.2 mg/dL (8.5-10.1); CREATININE 2.8 mg/dL (0.6-1.0); PHOSPHORUS 5.3 mg/dL (2.5-4.9)
[2018-12-29 08:21] VITALS: BP 130/43
[2018-12-29 16:00] VITALS: BP 129/49
--- NOTE | 2018-12-29 16:26 | NUR ---
ASSUMED CARE OF PATIENT AT 0700. ASSESSMENTS CHARTED. COMPLAINS OF LEFT KNEE PAIN, HOWEVER SHE WANTS TO D/C TOMORROW. SHE IS AMBULATING THE UNIT WITH PT TO BE ABLE TO GO HOME VERSUS GOING TO REHAB. PATIENT'S BLOOD SUGARS MONITORED AC&HS, INSULIN GIVEN. PATIENT DENIES ANY CHEST PAIN. ORTHO DENIES NEED FOR KNEE ASPIRATION OR IMMOBILIZER. PATIENT TO CONTINUE WITH POC.
[2018-12-29 19:30] VITALS: BP 128/50
[2018-12-30 04:30] VITALS: BP 142/62
--- NOTE | 2018-12-30 04:57 | NUR ---
ASSESSMENTS CHARTED, MEDS CHARTED. TODAY IS MARTHA'S BIRTHDAY. SHE WOULD LIKE TO GO HOME FOR HER PRESENT. PATIENT WALKED FROM HER BED TO THE ENTRANCE TO CCU AND BACK USING A WALKER. SINCE SHE HAS COMPLAINED OF LEFT SHOULDER PAIN GREATER THAN HER LEFT KNEE PAIN. SHE GOT UP TO BSC ONCE AND KAI TWICE DURING NIGHT. FALL PRECAUTIONS IN PLACE.
[2018-12-30 05:11] LABS: ALBUMIN 2.4 g/dL (3.4-5.0); CALCIUM 8.8 mg/dL (8.5-10.1); CREATININE 2.7 mg/dL (0.6-1.0); PHOSPHORUS 4.6 mg/dL (2.5-4.9); POTASSIUM 4.1 mmol/L (3.5-5.1)
[2018-12-30 08:07] VITALS: BP 130/46
[2018-12-30 12:00] VITALS: BP 129/53
[2018-12-30 13:35] LABS: ABSOLUTE NEUTROPHILS 12.1 thou/uL (1.4-8.2); BASOPHILS 1.4 % (0.0-2.0); HEMATOCRIT 28.3 % (37.0-47.0); HEMOGLOBIN 9.1 gm/dL (12.0-15.0); LYMPHOCYTES 12.7 % (24.0-44.0); MCHC 32.2 g/dL (28.0-37.0); MCV 83.9 fL (80.0-100.0); MONOCYTES 8.4 % (1.0-8.0); PLATELET COUNT 489 thou/uL (150-400); POLYS 72.5 % (36.0-66.0); RBC 3.37 mil/uL (4.20-5.00); RDW 13.7 % (10.5-14.5); WBC 16.7 thou/uL (4.0-11.0)
[2018-12-30 16:00] VITALS: BP 126/49
--- NOTE | 2018-12-30 16:47 | NUR ---
ASSUMED CARE AT 0700, SHIFT ASSESSMNET DONE, MEDS GIVEN, VSS. REPORTED SHOULDER PAIN, PRN PAIN MED GIVEN WITH NO RELIEF. DR BRUCE NOTIFED, DR INDICATED CANNOT GET ANY HIGHER DOSE SHOULDER PAIN INJURY IN MINIMAL. ORTHO COUSLT IN, SAW THE PATIENT. ORDERED LEFT LEG IMMOBILIZER, APPLIED ON THE LEFT LEG. PER DR BRUCE, ENCOURAGED TO USE HEATING PAD FOR SHOULDER. WILL CONTINUE TO ASSESS AND ASSIST WITH ADLs NEEDED.
[2018-12-30 19:56] VITALS: BP 125/53
[2018-12-31] VITALS (9 sets, daily range): BP systolic 116–142; BP diastolic 42–54
--- NOTE | 2018-12-31 00:22 | NUR ---
ASSESSMENTS CHARTED. MEDS GIVEN CHARTED. PATIENT SPENT HER BIRTHDAY AMOUNG FAMILY AND FRIENDS BETWEEN TESTS. LEFT SHOULDER WAS XRAY'D, HER LEFT KNEE WAS PLACED IN AN IMMOBILIZER. STILL USING HOT PAD FOR PAIN RELIEF IN HER KNEE. USING BED SIDE COMMODE TODAY. PLAN OF CARE IS TO RUN RENAL LAB IN AM AND WORK WITH PT. FALL PRECAUTIONS IN PLACE.
--- NOTE | 2018-12-31 04:07 | NUR ---
PATIENT FELL ON HER WAY TO THE COMMODE. PATIENT WAS ALREADY ON HIGH FALL RISK, BED ALARM WENT OFF, 3 STAFF MEMBERS RAN TO HER ROOM TO FIND HER SITTING ON THE FLOOR NEXT TO HER BED WITH THE COMMODE TIPPED OVER. PATIENT WAS ASSESSED WITH NO APPARENT INJURY, PATIENT WAS RETURNED TO HER BED, USED THE BEDPAN AND WAS PLACED ON FALL PRECAUTIONS AGAIN. PATIENT WAS ALERT AND ORIENTED PRIOR TO AND AFTER FALL. NO APPARENT INJURY WAS SUSTAINED. Migdalia ABARCA WAS NOTIFIED ALONG WITH IRRIGATION SUPERVISOR. PATIENT'S DG WAS CALLED.
[2018-12-31 06:26] LABS: ALBUMIN 2.3 g/dL (3.4-5.0); CREATININE 2.8 mg/dL (0.6-1.0); PHOSPHORUS 4.7 mg/dL (2.5-4.9); POTASSIUM 4.6 mmol/L (3.5-5.1)
--- NOTE | 2018-12-31 09:22 | NUR ---
PATIENT CARE ASSUMED, ASSESSMENT CHARTED, VSS, ALERT AND ORIENTED, PATIENT UP TO BEDSIDE COMMODE.
--- NOTE | 2018-12-31 15:18 | NUR ---
spoke with patient regarding post acute care. She has [employer] list to review. She plans to discuss with this evening
--- NOTE | 2018-12-31 15:25 | NUR ---
Nutrition: pt seen per followup. Continues to c/o of poor appetite. 30% intake of meals reported today but did much better yesterday, 60-80% of meals. Offered to assist pt in ordering meals but she declines. Receives Glucerna at lunch. Is tolerating ok. No longer requiring hemodialysis per renal, creatinine has stabilized STANISLAW post contrast. Noted pt is to be on 0.8 L/day fluid restriction but not presently ordered. Alerted nsg and will request no additional liquids on trays. Change supplements to ensure pudding so as not to provide additional fluid and only til po improves. BG 190-225, hyperglycemia present. follow for improvement. Low nutrition risk.
--- NOTE | 2018-12-31 18:50 | NUR ---
PATIENT CARE ASSUMED, ASSESSMENT CHARTED, VSS, ALERT AND ORIENTED, NO COMPLAINTS OF PAIN, NO COMPLAINTS OF SOA, NO NEEDS VOICED.
--- NOTE | 2019-01-01 04:11 | NUR ---
pt resting quietly in room, prn tylenol given at hs for 99.9 fever came down to 97.8, other gallo vss, asst x1 up to bsc, no further c/o pain, plan mri in am of l shoulder, iv team placed new piv and dc'd right ij, dressing cdi, will con't to monitor per ppoc.
[2019-01-01 04:45] VITALS: BP 122/40
[2019-01-01 07:49] VITALS: BP 131/38
[2019-01-01 08:03] LABS: CALCIUM 9.1 mg/dL (8.5-10.1); CREATININE 2.8 mg/dL (0.6-1.0); POTASSIUM 4.8 mmol/L (3.5-5.1)
[2019-01-01 08:08] LABS: ALBUMIN 2.2 g/dL (3.4-5.0); PHOSPHORUS 5.3 mg/dL (2.5-4.9)
--- NOTE | 2019-01-01 09:52 | NUR ---
patient rec post acute care list last evening with plan to review with last evening. She reports took list home. Sp with spouse he reports still reviewing will be here today at 1300 with skilled list to further discuss with .
[2019-01-01 11:44] VITALS: BP 115/37
--- NOTE | 2019-01-01 14:43 | NUR ---
FAXED REFERRAL TO [facility] SPOKE WITH JOSEPHINE IN ADM SHE RECEIVED REFERRAL AND CAN ACCEPT PT CLINICALLY AND WILL SUBMIT FOR AUTH. DP TO FOLLOW.
--- NOTE | 2019-01-01 15:00 | NUR ---
AAOX4 VERY PLEASANT AND COOPERATIVE. DENIES PAIN OR SOA. AMBULATES TO BR USING ROLLER WALKER WITH SLOW STEADY GAIT. NO EDEMA. REPORTS THAT SHE HAS NOT HAD A BM FOR 4 DAYS, WILL ADMINISTER MIRALAX. SPOUSE AT BEDSIDE.
[2019-01-01 16:05] VITALS: BP 133/42
[2019-01-01 19:40] VITALS: BP 125/41
[2019-01-02 04:45] VITALS: BP 130/40
--- NOTE | 2019-01-02 05:39 | NUR ---
ASSESSMENT DOCUMENTED.PT WAS RESTING IN NO DISTRESS UNTIL TOWARDS THIS MORNING WHEN SHE STARTED C/O PAIN TO RIGHT LEG.PT DESCRIBES PAIN THE SAME THE PAIN SHE HAD ON THE LEFT LEG.RATED PAIN AT 10/10, PAIN EXACERBATED BY THE MOVEMENT.PAIN MEDS,MUSCLE RELAXER AND MUSCLE RUB CREAM ADMINISTERED.HEATING PAD ALSO OFFERED.PT REPORTS NO.MUCH RELIEF.COPY READER NOTIFIED ADVISED TO CONT WITH THE TX THAT IS IN PLACE.WILL CONT TO MONITOR PER POC.
[2019-01-02 05:42] LABS: ALBUMIN 2.2 g/dL (3.4-5.0); CALCIUM 8.8 mg/dL (8.5-10.1); CREATININE 2.5 mg/dL (0.6-1.0); PHOSPHORUS 5.8 mg/dL (2.5-4.9); POTASSIUM 5.1 mmol/L (3.5-5.1)
[2019-01-02 07:55] VITALS: BP 130/39
[2019-01-02 12:01] VITALS: BP 121/58
[2019-01-02 15:39] VITALS: BP 122/34
--- NOTE | 2019-01-02 17:50 | NUR ---
PT ALERT AND ORIENTED. PRN TYLENOL GIVEN FOR ELEVATED TEMP. PT COMPLAINED OF LEFT LEG PAIN, PRN PAIN MED GIVEN WITH PARTIAL RELIEF. RE-EVALUATED WITH PT AND OT. UP IN THE CHAIR THIS AFTERNOON. FAMILY UPDATED ON PT'S PROGRESS. PT PROGRESSING SLOWLY TOWARD DISCHARGE GOAL. WILL CONTINUE TO MONITOR.
[2019-01-02 19:35] VITALS: BP 160/40
[2019-01-03 03:03] VITALS: BP 144/41
--- NOTE | 2019-01-03 03:17 | NUR ---
ASSESSMENT DOCUMENTED.PT BEEN RESTING IN NO ACUTE DISTRESS.A/OX4.VSS.CONTINUES TO C/O PAIN TO CARLOS LEGS,MORE PAIN ON RIGHT THAN LEFT LEG .X2 ASSIST TO BSC,PT HAVING DIFFICULTIES WITH BEARING WEIGHT ONTO HER LEGS,ENDED UP USING BEDPAN D/T DIFFICULTIES DURING TRANSFERS.PT UNABLE TO URINATE TWO TIMES DESPITE URGE TO URINATE.BLADDER SCAN OBTAINED 680CC OF URINE RESIDUAL,PT WAS ABLE TO VOID AFTER BLADDER SCAN.BLADDER SCANNED AFTER VOIDING,OBTAINED URINE RESIDUAL OF 550CC,REFUSED TO BE STRAIGHT CATHETED,REQUESTING TO WAIT AND SEE WHETHER SHE WILL BE ABLE TO URINATE BY THE END OF THE SHIFT.DENIES PAIN ON BLADDER PALPATION.POC IS TO DISCHARGE TO SNF AFTER NEUROLOGY SEE THE PATIENT.WILL CONT TO MONITOR PER POC.
--- NOTE | 2019-01-03 05:16 | NUR ---
PT STILL UNABLE TO URINATE.CONTINUES TO HAVE URGE TO VOID BUT UNABLE TO.BLADDER SCAN SHOWS 750CC,STRAIGHT CATH PER PROTOCOL.OBTAINED 650CC,UA SPECIMEN COLLECTED PER ORDERS.LOCAL OPERATOR NOTIFIED,ADVISED TO BLADDER SCAN AGAIN IN 6 HRS WE WAIT FOR URINALYSIS RESULTS AND IF PT IS STILL UNABLE TO VOID TO CONTACT PHYSICIAN FRO MORE ORDERS.
[2019-01-03 06:14] LABS: URINE BILIRUBIN NEGATIVE (Negative); URINE BLOOD 1+ (Negative); URINE CLARITY CLEAR; URINE COLOR YELLOW; URINE GLUCOSE-RANDOM* NEGATIVE (Negative); URINE KETONES NEGATIVE (Negative); URINE NITRITE-REFLEX NEGATIVE (Negative); URINE PROTEIN (DIPSTICK) 1+ (Negative); URINE SPECIFIC GRAVITY 1.015 (1.005-1.035); URINE UROBILINOGEN 0.2 E.U./dl (0.2-1.0)
[2019-01-03 06:15] LABS: URINE LEUKOCYTES-REFLEX 1+ (Negative)
[2019-01-03 06:23] LABS: CASTS None Seen /LPF (None Seen); SQUAMOUS 0-3 Few /LPF (0-3)
[2019-01-03 06:24] LABS: BACTERIA-REFLEX >30 Many /HPF (None Seen); CRYSTALS None Seen /LPF (None Seen); URINE RBC 0-2 Rare /HPF (0-2); URINE WBC-REFLEX 6-15 Few /HPF (0-5); WBC CLUMPS Occasional (None Seen)
[2019-01-03 07:45] LABS: ALBUMIN 2.2 g/dL (3.4-5.0); CREATININE 2.7 mg/dL (0.6-1.0); PHOSPHORUS 5.8 mg/dL (2.5-4.9); POTASSIUM 5.5 mmol/L (3.5-5.1)
[2019-01-03 08:00] VITALS: BP 125/35
--- NOTE | 2019-01-03 10:33 | NUR ---
[facility] can accept the pt for snf stay and they have ins auth in place. Pt and care team aware. Pt having issues with urination and nursing having to st cath. Awaiting plan of care for this issue. Possible dc to snf today. Chart copy in progress. Will follow.
[2019-01-03 12:00] VITALS: BP 100/37
--- NOTE | 2019-01-03 15:43 | NUR ---
PT ALERT AND ORIENTED. VSS. PRN PAIN MED GIVEN FOR LEFT LEG PAIN. REPORT HAVING DIFFICULTY SWALLOWING FOOD. DR. ALDRIDGE NOTIFIED. PARTICIPATED IN PT/OT. UP IN THE CHAIR THIS SHIFT. IV ABX GIVEN ORDERED. WILL CONTINUE TO MONITOR.
[2019-01-03 16:00] VITALS: BP 129/44
[2019-01-03 18:39] LABS: URINE BILIRUBIN NEGATIVE (Negative); URINE BLOOD 2+ (Negative); URINE CLARITY TURBID; URINE COLOR YELLOW; URINE GLUCOSE-RANDOM* NEGATIVE (Negative); URINE KETONES 1+ (Negative); URINE LEUKOCYTES-REFLEX 3+ (Negative); URINE NITRITE-REFLEX NEGATIVE (Negative); URINE PROTEIN (DIPSTICK) 3+ (Negative); URINE UROBILINOGEN 0.2 E.U./dl (0.2-1.0)
[2019-01-03 18:49] LABS: CASTS None Seen /LPF (None Seen); SQUAMOUS None Seen /LPF (0-3); URINE WBC-REFLEX >25 Many /HPF (0-5)
[2019-01-03 18:50] LABS: BACTERIA-REFLEX None Seen /HPF (None Seen); CRYSTALS None Seen /LPF (None Seen); MUCUS 0-3 Light strn/LPF (None Seen); URINE RBC 3-10 Few /HPF (0-2); WBC CLUMPS Packed (None Seen)
--- NOTE | 2019-01-03 19:16 | NUR ---
ODERS GIVEN TO INSERT A GIANG. POST VOID SHOWED GREATER THAN 500.
[2019-01-03 19:49] VITALS: BP 138/42
[2019-01-04 04:41] VITALS: BP 121/40
--- NOTE | 2019-01-04 05:45 | NUR ---
ASSESSMENT DOCUMENTED.PT BEEN SLEEPING MOST OF THE NOC.VSS.RA W/O RESP DISTRESS.PAIN MEDS GIVEN FOR CARLOS LEG PAIN ALONG WITH MUSCLE RELAXER.GIANG DD,URINE CLOUDY,300CC OF UO OBTAINED.NOTED THRUSH IN PT MOUTH,NYSTATIN SWISH AND SWALLOW ORDERED.CONTINUES TO HAVE DIFFICULTY SWALLOWING D/T THROAT PAIN.POC IS TO POSSIBLY TO DISCHARGE TO SNF TODAY.WILL CONT TO MONITOR PER POC.
[2019-01-04 06:06] LABS: CALCIUM 9.1 mg/dL (8.5-10.1); CREATININE 3.1 mg/dL (0.6-1.0); PHOSPHORUS 6.3 mg/dL (2.5-4.9); POTASSIUM 5.3 mmol/L (3.5-5.1)
[2019-01-04 07:45] LABS: ABSOLUTE NEUTROPHILS 10.3 thou/uL (1.4-8.2); BASOPHILS 0.8 % (0.0-2.0); EOSINOPHILS 2.9 % (0.0-3.0); HEMOGLOBIN 7.8 gm/dL (12.0-15.0); LYMPHOCYTES 11.3 % (24.0-44.0); MCHC 32.6 g/dL (28.0-37.0); MCV 83.1 fL (80.0-100.0); MONOCYTES 8.7 % (1.0-8.0); PLATELET COUNT 698 thou/uL (150-400); POLYS 76.3 % (36.0-66.0); RBC 2.89 mil/uL (4.20-5.00); WBC 13.5 thou/uL (4.0-11.0)
[2019-01-04 08:00] VITALS: BP 148/52
[2019-01-04 12:08] VITALS: BP 124/56
--- NOTE | 2019-01-04 13:34 | NUR ---
Dc to snf on hold due to renal issues/UTI. Admissions at [facility] notified and they will need updates on Monday so they can resubmit for ins auth. Pt on iv atb, walker in place, cre elev and being monitored. Pt being treated for trush. 124C completed and faxed to [facility]. Original placed on the chart to be sent with the pt at tx. Pt continuing to work with therapy. Will follow.
[2019-01-04 13:58] LABS: URINE CREATININE-RANDOM* 133.3 mg/dL; URINE SODIUM-RANDOM* <5 mmol/L
[2019-01-04 16:00] VITALS: BP 124/35
--- NOTE | 2019-01-04 16:04 | NUR ---
ASSESSMENT CHARTED. PT ALERT AND ORIENTED. VSS. RECEIVED PRN PAIN MED FOR LOWER EXTRIMITY PAIN. UP IN THE CHAIR THIS SHIFT. FAMILY UPDATED ON PT'S PROGRESS. WILL CONTINUE TO MONITOR.
[2019-01-04 19:48] LABS: % SATURATION 8 % (20-39); IRON 16 ug/dL (50-170); TIBC 189 ug/dL (250-450)
[2019-01-04 20:33] VITALS: BP 139/42
[2019-01-04 21:04] LABS: FOLIC ACID 17.9 ng/mL (8.6-58.9)
[2019-01-05 04:59] VITALS: BP 139/35
[2019-01-05 06:04] LABS: ALBUMIN 1.9 g/dL (3.4-5.0); CALCIUM 9.1 mg/dL (8.5-10.1); CREATININE 2.8 mg/dL (0.6-1.0); PHOSPHORUS 6.5 mg/dL (2.5-4.9); POTASSIUM 4.9 mmol/L (3.5-5.1)
[2019-01-05 07:50] VITALS: BP 139/42
--- NOTE | 2019-01-05 07:57 | NUR ---
ASSUME CARE 1900. PT/VITALS STABLE. COMPLAINS OF BLE PAIN AND A SORE THROAT. PT ON NYSTATIN FOR THRUSH IN HER MOUTH. MODERATELY TOLERATES ACTIVITY. PROGRESSING MODERATELY TO PLAN OF CARE. ASSESSMENT CHARTED. MODERATE REST NOTED TONIGHT. WILL CONTINUE TO MONITOR AND FOLLOW WIHT POC
[2019-01-05 12:00] VITALS: BP 143/39
[2019-01-05 17:15] VITALS: BP 145/37
[2019-01-05 19:34] VITALS: BP 154/37
--- NOTE | 2019-01-05 19:38 | NUR ---
PATIENT ALERT AND ORIENTED X4, PAIN MILDLY CONTROLLED WITH MEDICATION. ON ROOM AIR, FAIRLY TOLERATING DIET. GIANG PATENT AND DRAINING. UP WITH X2 ASSISTANCE, PATIENT TRANSFERRED TO CHAIR. BLOOD SUGAR MONITORED. PLAN OF CARE DISCUSSED WITH FAMILY AND PATIENT, NO SIGNS OF ACUTE DISTRESS NOTED AT THIS TIME. WILL CONTINUE TO MONITOR.
[2019-01-06 05:04] LABS: ABSOLUTE NEUTROPHILS 12.7 thou/uL (1.4-8.2); BASOPHILS 0.6 % (0.0-2.0); HEMATOCRIT 22.6 % (37.0-47.0); HEMOGLOBIN 7.6 gm/dL (12.0-15.0); LYMPHOCYTES 7.5 % (24.0-44.0); MCH 27.3 pg (26.0-34.0); MCHC 33.7 g/dL (28.0-37.0); MCV 81.2 fL (80.0-100.0); MONOCYTES 7.3 % (1.0-8.0); PLATELET COUNT 759 thou/uL (150-400); POLYS 82.6 % (36.0-66.0); RBC 2.78 mil/uL (4.20-5.00); RDW 13.8 % (10.5-14.5); WBC 15.4 thou/uL (4.0-11.0)
[2019-01-06 05:15] VITALS: BP 153/46
--- NOTE | 2019-01-06 05:22 | NUR ---
ASSUME CARE 1900. PT/VITALS STABLE. INTERMITTENT PAIN IN BLE. HYDROCODONE WITH GOOD RELIEF. POOR TOLRERANCE TO ACTIVITY. UP WITH MAX ASSIST TO BSC. BLE WEAK AND PAIN INDICATED IN LEFT SHOULDER. WOULD BENEFIT FROM PHYSICAL AND OCCUPATIONAL THERAPY. PLAN IS TO CONTINUE TX WITH ABX AND HELP MANAGE BOWELS WELL. WILL CONTINUE TO MONITOR AND FOLLOW WIHT POC
[2019-01-06 05:29] LABS: ALBUMIN 1.9 g/dL (3.4-5.0); CALCIUM 8.6 mg/dL (8.5-10.1); CREATININE 2.3 mg/dL (0.6-1.0); PHOSPHORUS 5.1 mg/dL (2.5-4.9); POTASSIUM 4.4 mmol/L (3.5-5.1)
[2019-01-06 06:06] LABS: PLATELET ESTIMATE MARKEDLY INCREASED
[2019-01-06 07:59] VITALS: BP 123/36
--- NOTE | 2019-01-06 09:08 | NUR ---
ASSUMED CARE OF PT FOR DAY SHIFT, A&0X4, C/O CHRONIC PAIN LEFT ARM/SHOULDER. ENCOURAGED HER TO USE AND NOT KEEP SO STILL. GAVE FLEXERIL/TYLENOL, BM X 2 THIS A.M., MINIMAL BREAKFAST YET HAS MANY DIFFERENT TYPES OF SNACK FOODS IN THE ROOM. CARDIAC MONITORED. SEE SEPARATE INTERVENTIONS FOR ASSESSMENTS. ENCOURAGED HER TO USE CALL LIGHT FOR ANY NEEDS. MAX ASSIST FOR SAFETY
[2019-01-06 11:56] VITALS: BP 143/38
[2019-01-06 16:21] VITALS: BP 122/37
[2019-01-06 19:36] VITALS: BP 140/45
[2019-01-07 03:44] VITALS: BP 148/40
[2019-01-07 05:28] LABS: HEMOGLOBIN 7.3 gm/dL (12.0-15.0); MCHC 33.2 g/dL (28.0-37.0); MCV 81.1 fL (80.0-100.0); RBC 2.71 mil/uL (4.20-5.00); RDW 13.8 % (10.5-14.5); WBC 14.7 thou/uL (4.0-11.0)
[2019-01-07 05:41] LABS: ALBUMIN 1.9 g/dL (3.4-5.0); CALCIUM 8.9 mg/dL (8.5-10.1); PHOSPHORUS 4.8 mg/dL (2.5-4.9); POTASSIUM 4.1 mmol/L (3.5-5.1)
--- NOTE | 2019-01-07 05:47 | NUR ---
ASSESSMENT DOCUMENTED.PT BEEN RESTING IN NO ACUTE DISTRESS.A/OX4.VSS.PT HAVE BEEN TRYING TO VOID ALL NOC W/O SUCCESS.THIS MORNING ON BLADDER SCAN SHOWS 650CC RESIDUAL.STRAIGHT CATHX1 OBTAINED 505CC.WIRE BRUSH OPERATOR NOTIFIED,INSTRUCTED TO MONITOR.PAIN MEDS ADMINISTERED PER PT REQUEST.PT DENIES ANY NEEDS AT THIS TIME.POC IS TO POSSIBLY D/C TODAY TO SKILLED FACILITY.WILL CONT TO MONITOR PER POC.
[2019-01-07 08:00] VITALS: BP 138/40
--- NOTE | 2019-01-07 10:12 | NUR ---
FOLLOWING FOR DC PLANNING. CLNINCAL INFO REVIEWED. APPEARS CREATININE TRENDING DOWN AND NOW CLOSE TO BASELINE AND NA STABLE WELL. UPDATE TO [facility] ADMISSIONS AND REQUESTED TO RESUBMIT FOR SKILLED AUTH TODAY.
[2019-01-07 12:12] VITALS: BP 144/42
--- NOTE | 2019-01-07 14:44 | NUR ---
spoke with and spouse at bedside regarding attempting to obtain auth and process. They are in agreement to transfer to skilled care at [facility] once auth obtained and orders.
--- NOTE | 2019-01-07 15:46 | NUR ---
ASSESSMENT CHARTED. PT ALERT AND ORIENTED. COMPLAINED OF LOWER EXTRIMITY PAIN. PRN MUSCLE RELAXER GIVEN. UP IN THE CHAIR THIS SHIFT. UNABLE TO VOID. BLADDER SCAN SHOWED 560. ORDERS GIVEN TO PUT A GIANG CATHETER. SEEN BY DR. VALLE. PLAN FOR PT TO DISCHARGE TO SNF. AWARE. WILL CONTINUE TO MONITOR.
[2019-01-07] MEDS ORDERED: NYSTATIN100000 UNI SW&SWALLOW (16:05)
[2019-01-07] MEDS ORDERED: FLOMAX0.4 MG PO (16:05)
[2019-01-07] MEDS ORDERED: IPRAT-ALBUT 0.5-3 ML INH (16:05)
[2019-01-07] MEDS ORDERED: CYCLOBENZAPRINE5 MG PO (16:06)
[2019-01-07] MEDS ORDERED: EFFIENT10 MG PO (16:06)
[2019-01-07] MEDS ORDERED: NITROGLYCERIN0.4 MG SUBLING (16:06)
[2019-01-07] MEDS ORDERED: ASPIR 8181 MG PO (16:07)
[2019-01-07] MEDS ORDERED: COZAAR 50 MG TA50 MG PO (16:07)
[2019-01-07] MEDS ORDERED: ACETAMINOPHEN325 M1 PO (16:08)
[2019-01-07] MEDS ORDERED: HYDROCODON-ACE1 EAC7 PO (16:08)
[2019-01-07] MEDS ORDERED: ARTHRITIS PAIN57 GM TOP (16:09)
[2019-01-07] MEDS ORDERED: SENNA-TIME S T1 EACH PO (16:09)
[2019-01-07] MEDS ORDERED: MIRALAX17 GM PO (16:09)
[2019-01-07] MEDS ORDERED: LIDOPATCH1 EACH TRANSDERM (16:10)
--- NOTE | 2019-01-07 16:59 | NUR ---
PT DISCHARGING TODAY TO [facility] FAXED DC ORDERS/SUMMARY TO FACILITY SPOKE WITH JOSEPHINE IN ADM SHE RECEIVED DC ORDERS AND ARRANGED TRANSPORT BY [facility] FOR [phone]. SW NOTIFIED PT AND PT'S DTR AT BEDSIDE AND I NOTIFIED PT'S (DG) TIME OF DISCHARGE. UNIT NOTIFIED AND CHART COPY PER US. RN TO CALL REPORT TO [phone].
--- NOTE | 2019-01-09 09:17 | HC ---
[facility] [place] [address] CONSULTATION Name: MARTHA ESTES Room #: 214-P [facility] IN .R.#: [id number] Admission: 12/21/18 Attend Phys: Halina Jeronimo MD Discharge: 01/07/19 Date of : 48 Report #: [id number] THIS REPORT FOR: //name// CC: Ruth Muro REASON FOR THE CONSULTATION: Elevated creatinine. REASON FOR THE PRESENTATION: Chest pain. HISTORY OF PRESENT ILLNESS: A 67-year-old with past medical history of diabetes mellitus, hypertension, chronic kidney disease. She presented with chest pain. This had been progressing with significant radiation to her shoulder and neck. This is associated with shortness of breath and palpitation on exertion. She does not have a remote history of coronary artery disease, but she has a strong family history of heart disease in her family. She also carries all the risk factors including diabetes mellitus and hypertension. The patient's creatinine on presentation was 1.7. She had an elevated troponin. She underwent cardiac catheterization and was found to have critical proximal circumflex lesion that was treated with a stent. She was also found to have right coronary artery disease that will need further intervention down the road. Post-cardiac catheterization, the patient's creatinine went up to 2.5 mandating a Nephrology consultation. The patient tells me that she is followed by kidney clinic in [facility] and she is aware of her kidney disease, but she does not know her kidney disease status. She was told that this is likely related to diabetes mellitus and hypertension. She does have diabetic retinopathy. PAST MEDICAL HISTORY: 1. Hypertension. 2. Bilateral tubal ligation. 3. Diabetes mellitus. 4. Hyperlipidemia. MEDICATIONS: 1. Metoprolol. 2. Hydrochlorothiazide. 3. Losartan. 4. Insulin. ALLERGIES: None. FAMILY HISTORY: Significant for coronary artery disease and hypertension. SOCIAL HISTORY: She denies drug or alcohol abuse. She is an ex-smoker up to 2 packs per day. REVIEW OF SYSTEMS: [facility] [address] [place] [address] CONSULTATION Name: MARTHA ESTES Room #: 214-P [facility] IN M.R.#: [id number] Admission: 12/21/18 Attend Phys: Halina Jeronimo MD Discharge: 01/07/19 Date of : 48 Report #: [id number] GENERAL: No fever or chills. CARDIOVASCULAR: As per the history of present illness. PULMONARY: No cough or hemoptysis. GASTROINTESTINAL: No nausea or vomiting. GENITOURINARY: No frequency, no urgency. MUSCULOSKELETAL: Occasional back pain. NEUROLOGICAL: No headache, no dizziness. SKIN: No rash or ulcerations. PHYSICAL EXAMINATION: GENERAL: Alert and oriented. VITAL SIGNS: Blood pressure is 126/44, pulse rate is 77. HEAD AND NECK: No jugular venous distention, no bruit, no thyromegaly. CHEST: Decreased air entry bilaterally with crackles. CARDIOVASCULAR: Regular with no rub detected. ABDOMEN: Soft, nontender with no hepatosplenomegaly. LOWER EXTREMITIES: No edema. SKIN: No rash or ulcerations. NEUROLOGICAL: Alert and oriented with no apparent distress. LABORATORY DATA: Reviewed. White blood cell count is 10.3, hemoglobin is 9. Sodium 137, BUN is 38, creatinine is 2.5. Magnesium is 1.7. Troponin is 4.8. ASSESSMENT, IMPRESSION AND PLAN: 1. Acute kidney injury post-contrast nephropathy post-cardiac catheterization due to contrast nephropathy. 2. Chronic kidney disease. 3. Hypertension. 4. Diabetes mellitus. 5. Recent rise in the patient's creatinine is expected post-cardiac catheterization. 6. Continue with intravenous fluid. 7. Keep holding the losartan. 8. Blood pressure control. 9. Blood sugar control. 10. Repeat labs in the morning. 11. Avoid nephrotoxins. 12. Hopefully, we could get her through without any further deterioration of her renal function. 13. Prospective of her kidney disease will have to be addressed by her primary credit products officer. <ELECTRONICALLY SIGNED> By: Horacio Hernández MD 01/09/19916 [id number] Horacio Hernández MD /nt
--- NOTE | 2019-01-16 14:25 | HC ---
[facility] [place] [address] CONSULTATION Name: MARTHA ESTES Room #: 214-P [facility] IN M.R.#: [id number] Admission: 12/21/18 Attend Phys: Halina Jeronimo MD Discharge: 01/07/19 Date of : 48 Report #: [id number] THIS REPORT FOR: //name// CC: Ruth Jeronimo DATE OF SERVICE: 12/28/2018 REASON FOR CONSULTATION: Left knee pain. HISTORY OF PRESENT ILLNESS: The patient is a 67-year-old female admitted for cardiac issues, who reports left knee pain since yesterday. She reportedly worked with therapy, but then upon sitting down noted significant knee pain. Denied hearing a pop. She reports the pain today is slightly better. She reports that her reminded her that she has had knee pain in the past due to her RA but has not had any specific treatment for it. She got up to the commode today with her , but otherwise has not ambulated. PAST MEDICAL HISTORY: Significant for coronary artery disease, hypertension, diabetes mellitus, rheumatoid arthritis. ALLERGIES: No known drug allergies. REVIEW OF SYSTEMS: NEUROLOGIC: Denies numbness or tingling. MUSCULOSKELETAL: See HPI, denies other extremity complaints. PAST SURGICAL HISTORY: Cardiac catheterization. SOCIAL HISTORY: Lives at home with her , does not use any ambulatory aids. Denies smoking. Drinks alcohol occasionally. MEDICATIONS: MR was reviewed, which shows ipratropium/albuterol, oxycodone, aspirin, capsaicin, cyclobenzaprine, nifedipine, furosemide, hydralazine, famotidine, prasugrel, promethazine, atorvastatin, zolpidem, hydrocodone, insulin, nitroglycerin. LABORATORY STUDIES: Done on 12/28/2018 show white blood cell count 15.4, hemoglobin 10.4, hematocrit 32.1, platelet count 447. ESR is elevated at 63. Chemistry shows a CRP at 197.6, albumin is low at 2.9. PHYSICAL EXAMINATION: GENERAL: She is alert and oriented. She interacts appropriately. She is well-developed, well-nourished female who converses well. VITAL SIGNS: Most recent vital signs show a temperature of 36.3, heart rate 84, respiratory rate 17, blood pressure 147/62, pulse oximetry is 97% on 2 liters [facility] [address] [place] [address] CONSULTATION Name: MARTHA ESTES Room #: 214-[facility].#: [id number] Admission: 12/21/18 Attend Phys: Halina Jeronimo MD Discharge: 01/07/19 Date of : 48 Report #: [id number] nasal cannula. EXTREMITIES: Examination of her bilateral lower extremities, skin is clean, dry and intact. She has brisk capillary refill. EHL, FHL, dorsiflexion and plantarflexion are intact. There is no knee effusion on the left. There is a mild knee effusion on the right. There is no erythema. There is diffuse knee tenderness in the joint line at the patellar tendon and at the quad. There may be a defect superiorly in the quad. She is unable to perform a straight leg raise on the left. She is able to perform a straight leg raise on the right. The left knee is grossly stable. RADIOGRAPHS: AP and lateral of the femur do not show any osseous abnormality. There is actually a relatively nice joint space. IMPRESSION AND PLAN: Left knee pain with no significant joint effusion and a suspicion for a quadriceps tendon tear. At this point, I would await for the MRI before performing any type of knee joint aspiration as she has a minimal to no joint effusion, and I am suspicious for a quad tendon tear. Questions were encouraged and answered to the best of my ability. I will see her again tomorrow morning, and we will discuss the MRI results. Thank you very much for allowing me to participate in the care of this patient. <ELECTRONICALLY SIGNED> By: Erin Schilling MD 01/16/19 1425 [id number] Erin Schilling MD /nt
== END 2019-01-07 18:20 | DRG 246 ==
LOC: ER 19:30 → ICU 21:24 → 2N 21:24 → EROBS 21:24 → 2N 22:00 → ICU 12-22 14:00 → 2N 12-23 17:16 → ENTRNSPT 12-24 08:16 → EDTRNSPTSTS 12-24 08:18 → DELTRNSPT 12-24 12:22 → ICU 12-24 12:37 → 2N 12-26 18:58
PROVIDERS: Emergency Medicine; Hospitalist; Internal Medicine; Internal Medicine Nephrology; Internal Medicine Pulmonary Disease; Nurse Practitioner Acute Care; Nurse Practitioner Adult Health; ADMIT Internal Medicine
PROC: 4A023N7 Measurement of Cardiac Sampling and Pressure, Left Heart, Percutaneous Approach (ICD-10-PCS; principal; 2018-12-22)
PROC: 027034Z Dilation of Coronary Artery, One Artery with Drug-eluting Intraluminal Device, Percutaneous Approach (ICD-10-PCS; principal; 2018-12-22)
PROC: B2111ZZ Fluoroscopy of Multiple Coronary Arteries using Low Osmolar Contrast (ICD-10-PCS; principal; 2018-12-22)
PROC: 5A09357 Assistance with Respiratory Ventilation, Less than 24 Consecutive Hours, Continuous Positive Airway Pressure (ICD-10-PCS; 2018-12-24)
PROC: B5181ZA Fluoroscopy of Superior Vena Cava using Low Osmolar Contrast, Guidance (ICD-10-PCS; 2018-12-24)
PROC: B548ZZA Ultrasonography of Superior Vena Cava, Guidance (ICD-10-PCS; 2018-12-24)
PROC: 5A1D70Z Performance of Urinary Filtration, Intermittent, Less than 6 Hours Per Day (ICD-10-PCS; 2018-12-24)
PROC: 02HV33Z Insertion of Infusion Device into Superior Vena Cava, Percutaneous Approach (ICD-10-PCS; 2018-12-24)
PROC: 5A09357 Assistance with Respiratory Ventilation, Less than 24 Consecutive Hours, Continuous Positive Airway Pressure (ICD-10-PCS; 2018-12-25)
PROC: 5A1D70Z Performance of Urinary Filtration, Intermittent, Less than 6 Hours Per Day (ICD-10-PCS; 2018-12-25)
PROC: 30233N1 Transfusion of Nonautologous Red Blood Cells into Peripheral Vein, Percutaneous Approach (ICD-10-PCS; 2018-12-25)
PROC: 5A1D70Z Performance of Urinary Filtration, Intermittent, Less than 6 Hours Per Day (ICD-10-PCS; 2018-12-26)
DX: I21.4 Non-ST elevation (NSTEMI) myocardial infarction (principal); J96.01 Acute respiratory failure with hypoxia; J18.9 Pneumonia, unspecified organism; I50.33 Acute on chronic diastolic (congestive) heart failure; N18.4 Chronic kidney disease, stage 4 (severe); I13.0 Hypertensive heart and chronic kidney disease with heart failure and stage 1 through stage 4 chronic kidney disease, or unspecified chronic kidney disease; E87.1 Hypo-osmolality and hyponatremia; D62 Acute posthemorrhagic anemia; N39.0 Urinary tract infection, site not specified; N17.9 Acute kidney failure, unspecified; S86.919A Strain of unspecified muscle(s) and tendon(s) at lower leg level, unspecified leg, initial encounter; J02.9 Acute pharyngitis, unspecified; X58.XXXA Exposure to other specified factors, initial encounter; R33.9 Retention of urine, unspecified; G89.29 Other chronic pain; M54.9 Dorsalgia, unspecified; S46.012A Strain of muscle(s) and tendon(s) of the rotator cuff of left shoulder, initial encounter; M54.16 Radiculopathy, lumbar region; E78.5 Hyperlipidemia, unspecified; E66.9 Obesity, unspecified; E11.22 Type 2 diabetes mellitus with diabetic chronic kidney disease; M06.9 Rheumatoid arthritis, unspecified; I25.10 Atherosclerotic heart disease of native coronary artery without angina pectoris; Z79.82 Long term (current) use of aspirin; Z79.899 Other long term (current) drug therapy; Z82.49 Family history of ischemic heart disease and other diseases of the circulatory system; Z87.891 Personal history of nicotine dependence; Z95.5 Presence of coronary angioplasty implant and graft; Z68.32 Body mass index [BMI] 32.0-32.9, adult; Z71.3 Dietary counseling and surveillance; Y93.89 Activity, other specified; Y92.89 Other specified places as the place of occurrence of the external cause; Y99.8 Other external cause status
CPT/HCPCS: 10078; 10081; 32100; 85076

== ENCOUNTER 2019-01-10 09:42 | Emergency (ER) | payer OTHER ==
[~2019-01-10] VITALS: Ht 160 cm; Wt 63.5 kg
[~2019-01-10 09:42] MED LIST: ACETAMINOPHEN325 M1 PO; ARTHRITIS PAIN57 GM TOP; ASPIR 8181 MG PO; COZAAR 25 MG TA25 M1 PO; COZAAR 50 MG TA50 MG PO; CYCLOBENZAPRINE5 MG PO; EFFIENT10 MG PO; FLOMAX0.4 MG PO; HYDROCHLOROTH12.5 M1 PO; HYDROCODON-ACE1 EAC7 PO; IPRAT-ALBUT 0.5-3 ML INH; LIDOPATCH1 EACH TRANSDERM; LOPRESSOR50 PO; MIRALAX17 GM PO; NIFEDIPINE ER90 MG PO; NITROGLYCERIN0.4 MG SUBLING; NOVOLIN N100 UNIT/1; NOVOLIN R100 UNIT/1; NYSTATIN100000 UNI SW&SWALLOW; ROSUVASTATIN CA10 MG PO; SENNA-TIME S T1 EACH PO
[2019-01-10 10:27] LABS: ABSOLUTE NEUTROPHILS 10.1 thou/uL (1.4-8.2); EOSINOPHILS 7.2 % (0.0-3.0); HEMATOCRIT 24.4 % (37.0-47.0); HEMOGLOBIN 7.7 gm/dL (12.0-15.0); LYMPHOCYTES 13.8 % (24.0-44.0); MCH 26.3 pg (26.0-34.0); MCHC 31.7 g/dL (28.0-37.0); MONOCYTES 4.5 % (1.0-8.0); PLATELET COUNT 873 thou/uL (150-400); POLYS 73.5 % (36.0-66.0); RBC 2.94 mil/uL (4.20-5.00); RDW 14.5 % (10.5-14.5); WBC 13.7 thou/uL (4.0-11.0)
[2019-01-10 10:33] LABS: INR 1.1
[2019-01-10 10:38] LABS: CALCIUM 8.9 mg/dL (8.5-10.1); CREATININE 1.9 mg/dL (0.6-1.0); POTASSIUM 4.9 mmol/L (3.5-5.1)
[2019-01-10 10:44] LABS: ALBUMIN 2.2 g/dL (3.4-5.0); TOTAL BILIRUBIN 0.6 mg/dL (<0.1-1.0); TOTAL PROTEIN 8.3 g/dL (6.4-8.2)
[2019-01-10] MEDS ORDERED: FERROUS SULFAT325 MG PO (10:45)
[2019-01-10 11:46] VITALS: BP 143/52
== END 2019-01-10 12:00 ==
LOC: ER 09:42
PROVIDERS: Emergency Medicine
DX: D64.9 Anemia, unspecified (principal); I10 Essential (primary) hypertension; M06.9 Rheumatoid arthritis, unspecified; Z98.51 Tubal ligation status; Z86.711 Personal history of pulmonary embolism; Z87.891 Personal history of nicotine dependence; Z88.6 Allergy status to analgesic agent

== ENCOUNTER 2020-08-12 10:42 | Inpatient (IN) | payer OTHER ==
[~2020-08-12] VITALS: Ht 157.5 cm; Wt 81.7 kg
[~2020-08-12 10:42] MED LIST changes: +FERROUS SULFAT325 MG PO
[2020-08-12 11:04] VITALS: BP 203/85
[2020-08-12 11:05] LABS: ABSOLUTE NEUTROPHILS 6.1 thou/uL (1.4-8.2); BASOPHILS 1.2 % (0.0-2.0); EOSINOPHILS 5.1 % (0.0-3.0); HEMATOCRIT 35.3 % (37.0-47.0); HEMOGLOBIN 11.1 gm/dL (12.0-15.0); LYMPHOCYTES 38.5 % (24.0-44.0); MCH 26.7 pg (26.0-34.0); MCHC 31.4 g/dL (28.0-37.0); MONOCYTES 5.7 % (1.0-8.0); PLATELET COUNT 491 thou/uL (150-400); POLYS 49.5 % (36.0-66.0); RBC 4.16 mil/uL (4.20-5.00); RDW 13.6 % (10.5-14.5); WBC 12.3 thou/uL (4.0-11.0)
[2020-08-12 11:13] LABS: ANION GAP 13 mmol/L (7-16); BUN 30 mg/dL (7-18); CALCIUM 10.1 mg/dL (8.5-10.1); CHLORIDE 106 mmol/L (98-107); CO2 23 mmol/L (21-32); CREATININE 1.6 mg/dL (0.6-1.0); GLUCOSE 106 mg/dL (74-106); SODIUM 142 mmol/L (136-145)
[2020-08-12 11:20] LABS: APTT 25.6 Seconds (24.5-32.8); INR 0.94; PROTIME 10.3 Seconds (10.5-12.1)
[2020-08-12 11:23] LABS: ALBUMIN 3.4 g/dL (3.4-5.0); MAGNESIUM 1.8 mg/dL (1.8-2.4); SGOT 23 U/L (15-37); SGPT 24 U/L (14-59); TOTAL BILIRUBIN 0.3 mg/dL (0.2-1.0); TOTAL PROTEIN 8.7 g/dL (6.4-8.2); TROPONIN-I <0.06 ng/mL (<0.06)
[2020-08-12] MEDS ORDERED: ARAVA20 MG PO (11:26)
[2020-08-12 11:30] VITALS: BP 205/92
--- NOTE | 2020-08-12 11:37 | EKG ---
[place] [address] [address] [place] [address] ELECTROCARDIOGRAM REPORT Name: MARTHA ESTES Room #: [facility]#: [id number] Admission: Attend Phys: Discharge: Date of : 48 Report #: [id number] [facility] ED Test Date: 2020-08-12 Test Time: 10:45:57 Pat Name: MARTHA ESTES Department: Room: Gender: F Extension Service Specialist In Charge: MARY : 1950 Requested By: George Irvin Order Number: [id number] MD: Pedro Davis Measurements Intervals [place] Rate: 103 P: 68 IA: 137 QRS: 59 QRSD: 79 T: 201 QT: 280 QTc: 367 Interpretive Statements Sinus tachycardia Biatrial enlargement Repol abnrm, severe global ischemia (LM/MVD) Baseline wander in lead(s) II,III,aVR,aVF Compared to ECG 12/24/2018 08:06:53 Atrial abnormality now present Early repolarization now present Possible ischemia now present Sinus rhythm no longer present ST (T wave) deviation no longer present Electronically Signed On 08-12-2020 11:37:31 CDT by Pedro Davis [email or web address] <ELECTRONICALLY SIGNED> By: Pedro Davis MD, [facility] 08/12/20 1137 1045 1045 Pedro Davis MD, [facility] /EPI
--- NOTE | 2020-08-12 13:31 | CATHLAB ---
[facility] [place] [address] INVASIVE PROCEDURE REPORT Name: MARTHA ESTES Room #: 150-6 ADM IN M.R.#: [id number] Admission: 08/12/20 Attend Phys: Kendall Espinoza MD Discharge: Date of : 48 Report #: [id number] THIS REPORT FOR: cc: Ruth Bob Diane C. DO Lundgren, Craig H. MD [facility] ~ APPROVED REPORT Study performed: 08/12/2020 11:26:01 Patient Details Patient Status: ED Room #: The patient is a 69 year-old female Event Personnel Grey Kendall Soil Scientist, Maricruz Dunlap RN RN, Trudy Joseph RT(R)() Jarocho Carroll Roberta Monitor Procedures Performed Art Access - R femoral artery* Left Heart Cath w/or w/o Coronaries [id number] [facility] [address] Initial Mod Sed Same Phys/QHP Gr 485335 91487 Mod Sed Same Phys/QHP Ea [id number] VICENTE Revasc AMI Total/Sub Single CIRC C9606 AMIREVSING Indication Non-STEMI (>6 hrs to = 12 hrs), Chest pain Previous Procedures/Diagnoses Previous PCI Procedure Narrative The patient was brought urgently to the Cardiac Catheterization Laboratory and was prepped and draped in a sterile manner. The Right Groin^ was infiltrated with 1% Lidocaine subcutaneous anesthesia. A PINNACLE 6FR Sheath #[id number] sheath was inserted into the RFA^. Coronary angiography was performed using coronary diagnostic catheters. The right coronary system was accessed and visualized with a JR4 catheter. The left coronary system was accessed and visualized with a JL4 catheter. The left ventricle was accessed and visualized with a ANGLE PIG catheter. There was no hematoma. Intraoperative Conscious Sedation Sedation start time: 1157 Case end Time: 1245 [facility] [place] [address] INVASIVE PROCEDURE REPORT Name: MARTHA ESTES Room #: 150-6 [facility] IN [facility]#: [id number] Admission: 08/12/20 Attend Phys: Kendall Espinoza MD Discharge: Date of : 48 Report #: [id number] Fentanyl 125 mcg Versed 2 mg Fluoro Time: 6.60 minutes Dose: DAP 0.00 cGycm2 2355 mGy Contrast Type and Amount: Visipaque 150 ml Coronary Angiography The patient's coronary anatomy is co- dominant. Diagnostic Cath Left Main Normal left main LAD Minimal calcific proximal and mid LAD plaquing. Circumflex Widely patent proximal circumflex stent. 99% mid circumflex stenosis before the first marginal branch OM1 Mild proximal OM1 plaquing L PDA Mild posterior descending artery plaquing Right Coronary Long variable 60-75% mid vessel, tortuous right coronary stenosis R PDA Small, angiographically normal posterior descending Left Ventriculography Left Ventriculography was not performed. Hemodynamics The aortic pressure is 174/54 mmHg with a mean of 85 mmHg. The left ventricular pressure is 184/4 mmHg with a mean of mmHg. The left ventricular end diastolic pressure is 24 mmHg. PCI Technique Lesion Anticoagulation was achieved with Heparin, Integrilin. Patient was preloaded with Effient. Percutaneous coronary intervention was performed on the mid circumflex artery segment. The lesion stenosis prior to intervention was 99% with ELIZABETH 2 flow. A LAUNCHER 6FR EBU 3.5 #[id number] Guide Catheter was used to engage the ostium. A Luge Wire .014 x 182CM #[id number] Interventional Guidewire was used to cross the lesion. BALLOON DILATION A Balloon catheter Euphora RX 2.5 x 12 #[id number] was inserted and inflated up to 8.00atm for 33seconds. Additional Inflation: 14.00atm for 32seconds. Additional Inflation: 13.00atm for 23seconds. STENT DEPLOYMENT A stent TREK NC RX 2.5 X 15 #[id number] was inserted and inflated up to 16.00atm for 30seconds. [facility] [address] [place] [address] INVASIVE PROCEDURE REPORT Name: MARTHA ESTES Room #: 150-6 [facility] IN .#: [id number] Admission: 08/12/20 Attend Phys: Kendall Espinoza MD Discharge: Date of : 48 Report #: [id number] POST STENT DEPLOYMENT BALLOON DILATION A Balloon catheter TREK NC RX 2.5 X 15 #[id number] was inserted and inflated up to 18.00atm for 33seconds. Additional Inflation: 22.00atm for 30seconds. Final angiography reveals 0 % stenosis with ELIZABETH 3 flow. Conclusion 1. Normal left main 2. Mild LAD plaquing 3. Severe mid circumflex stenosis stented with a 2.5 x 15 mm Resolute medicated stent, post-dilated to 2.75mm 4. Long variable severe mid right coronary stenosis, similar to an angiogram dated December 2018. Medical therapy recommmended Recommendations Cardiac Rehabilitation Referral Aggressive Medical Therapy <ELECTRONICALLY SIGNED> By: Grey Kendall MD, [facility] 08/12/201330 30 30 Grey Kendall MD, FACC /INF
--- NOTE | 2020-08-12 13:57 | NUR ---
ASSUMED PT CARE FROM PRODUCE DEPARTMENT MANAGER AT 1305, PT WAS TRANSFERRED FROM CART TO BED, PT WAS PALE, NAUSEA. PT C/O ABD CRAMPING AND NEEDING TO HAVE A BOWEL MOVEMENT. PT PLACED ON BEDPAN WITH NO SUCCESS. AFTER SITTING WITH THE PATIENT FOR APPROXIMATELY 45 MINUTES PT STATES THE NAUSEA AND ABD CRAMPING WAS BETTER. VSS. PT PLACED ON POST PRODUCE DEPARTMENT MANAGER PRECAUTIONS. PT IS EMOTIONALLY STRESSED DUE TO ALSO BEING ADMITTED TO THE HOSPITAL. ADMISSION DETAILS COMPLETED. WILL CONTINUE TO MONITOR AND FOLLOW POC.
--- NOTE | 2020-08-12 16:07 | EKG ---
[address] [address] ELECTROCARDIOGRAM REPORT Name: MARTHA ESTES Room #: 207-P ADM IN M.R.#: [id number] Admission: 08/12/20 Attend Phys: Kendall Espinoza MD Discharge: Date of : 48 Report #: [id number] [facility] Test Date: 2020-08-12 Test Time: 15:58:43 Pat Name: MARTHA ESTES Department: Room: 207 Gender: F Child Development Consultant: KRISTEN : 1950 Requested By: Mayela Moore Order Number: [id number] MD: Rohit Manning Measurements Intervals [place] Rate: 89 P: 72 VA: 136 QRS: 60 QRSD: 114 T: 45 QT: 379 QTc: 462 Interpretive Statements Sinus rhythm Biatrial enlargement Borderline intraventricular conduction delay Compared to ECG 08/12/2020 10:45:57 Sinus tachycardia no longer present Early repolarization no longer present Possible ischemia no longer present Electronically Signed On 08-12-2020 16:07:21 CDT by Rohit Manning [email or web address] <ELECTRONICALLY SIGNED> By: Rohit Manning MD 08/12/20 1607 1558 1558 Rohit Manning MD /EPI
--- NOTE | 2020-08-12 16:19 | NUR ---
PT CONTINUES TO BE ON BEDREST UNTIL 1637. PT ASKED FOR BROTH, TOOL BUILDER ASSISTED PATIENT WITH GETTING BROTH. PTS ASSESSMENT UNCHANGED. FAMILY AT BEDSIDE. VSS. WILL CONTINUE TO MONITOR AND FOLLOW POC.
[2020-08-12 19:40] VITALS: BP 154/76; BP 159/76
[2020-08-12 22:51] LABS: URINE BILIRUBIN NEGATIVE (Negative); URINE BLOOD TRACE (Negative); URINE CLARITY CLEAR; URINE COLOR YELLOW; URINE GLUCOSE-RANDOM* TRACE (Negative); URINE KETONES NEGATIVE (Negative); URINE LEUKOCYTES-REFLEX NEGATIVE (Negative); URINE NITRITE-REFLEX NEGATIVE (Negative); URINE PROTEIN (DIPSTICK) 2+ (Negative); URINE SPECIFIC GRAVITY 1.015 (1.005-1.035); URINE UROBILINOGEN 0.2 E.U./dl (0.2-1.0)
[2020-08-12 23:29] LABS: SQUAMOUS 0-3 Few /LPF (0-3); URINE RBC 1-2 Rare /HPF (NONE SEEN); URINE WBC-REFLEX 0-5 Rare /HPF (0-5)
[2020-08-12 23:30] LABS: BACTERIA-REFLEX 1-9 Few /HPF (None Seen); CASTS None Seen /LPF (None Seen); CRYSTALS None Seen /LPF (None Seen); MUCUS 4-6 Moderate strn/LPF (None Seen)
[2020-08-13 01:06] LABS: GLYCOHEMOGLOBIN (HGB A1C) 6.6 % (4.8-5.6)
[2020-08-13 03:32] LABS: ABSOLUTE NEUTROPHILS 5.9 thou/uL (1.4-8.2); EOSINOPHILS 1.2 % (0.0-3.0); HEMATOCRIT 29.4 % (37.0-47.0); HEMOGLOBIN 9.6 gm/dL (12.0-15.0); LYMPHOCYTES 23.2 % (24.0-44.0); MCH 27.6 pg (26.0-34.0); MCHC 32.7 g/dL (28.0-37.0); MCV 84.4 fL (80.0-100.0); MONOCYTES 6.5 % (1.0-8.0); POLYS 68.1 % (36.0-66.0); RBC 3.48 mil/uL (4.20-5.00); RDW 13.6 % (10.5-14.5); WBC 8.6 thou/uL (4.0-11.0)
[2020-08-13 04:05] VITALS: BP 168/45
[2020-08-13 04:18] LABS: PLATELET COUNT 404 thou/uL (150-400)
[2020-08-13 05:06] LABS: CALCIUM 9.1 mg/dL (8.5-10.1); CREATININE 1.6 mg/dL (0.6-1.0); MAGNESIUM 1.8 mg/dL (1.8-2.4); POTASSIUM 4.4 mmol/L (3.5-5.1)
[2020-08-13 05:16] LABS: CHOLESTEROL 122 mg/dL (<200); HDL CHOLESTEROL 56 mg/dL (>40); LDL CHOLESTEROL 39 mg/dL (<100); TC:HDL 2.2 Ratio (Not establshd); TRIGLYCERIDE 135 mg/dL (<150); VLDL 27 mg/dL (<40)
[2020-08-13 05:18] LABS: SERUM ASSESSMENT Clear
[2020-08-13 05:19] LABS: TROPONIN-I 8.09 ng/mL (<0.06)
--- NOTE | 2020-08-13 06:26 | NUR ---
ASSUMED CARE AT 1900. PT REPORTED MILD CHEST AND BACK DULL DISCOMFORT OVERNIGHT, DID NOT RADIATE, DENIED NAUSEA/DIZZINESS/PALPITATIONS, AND WAS SR IN 70-80'S OVERNIGHT. GAVE HYDROCODONE TWICE FOR PAIN. RIGHT GROIN DRESSING C/D/I, NO HEMATOMA. PT C/O STOMACH PAIN/CRAMPING, OBTAINED ONE TIME ORDER FOR PEPTOBISMOL AND GAVE THIS MORNING. IVF INFUSING OVERNIGHT, PT URINATING WELL. NO OTHER CONCERNS, WILL CONTINUE TO MONITOR.
[2020-08-13 07:17] VITALS: BP 179/57
--- NOTE | 2020-08-13 08:17 | EKG ---
[address] [address] ELECTROCARDIOGRAM REPORT Name: MARTHA ESTES Room #: 207- ADM IN M.R.#: [id number] Admission: 08/12/20 Attend Phys: Kendall Espinoza MD Discharge: Date of : 48 Report #: [id number] [facility] Test Date: 2020-08-13 Test Time: 07:08:21 Pat Name: MARTHA ESTES Department: Room: 207 Gender: F Diabetes Nurse: CATARINA : 1950 Requested By: Grey Kendall Order Number: [id number] MD: Grey Kendall Measurements Intervals [place] Rate: 78 P: 63 GA: 137 QRS: 60 QRSD: 78 T: 59 QT: 413 QTc: 471 Interpretive Statements Sinus rhythm Poor R wave progression Compared to ECG 08/12/2020 15:58:43 No significant changes Electronically Signed On 08-13-2020 8:17:00 CDT by Grey Kendall [email or web address] <ELECTRONICALLY SIGNED> By: Grey Kendall MD, [facility] 08/13/20 0817 7 Grey Kendall MD, FACC /EPI
[2020-08-13 11:25] VITALS: BP 158/49
[2020-08-13 16:08] VITALS: BP 184/59
--- NOTE | 2020-08-13 16:43 | 2DMMODE ---
[facility] [place] [address] 2 D/M-MODE ECHOCARDIOGRAM Name: MARTHA ESTES Room #: 207-P ADM IN M.R.#: [id number] Admission: 08/12/20 Attend Phys: Kendall Espinoza MD Discharge: Date of : 48 Report #: [id number] THIS REPORT FOR: cc: Ruth Bob,Grey Carson MD [facility] ~ APPROVED REPORT Study performed: 08/13/2020 14:14:25 EXAM: Comprehensive 2D, Doppler, and color-flow Echocardiogram Patient Location: Bedside Room #: 207 Status: routine BSA: 1.82 HR: 76 bpm BP: 179/57 mmHg Rhythm: NSR Other Information Study Quality: Adequate Indications Diabetes Elevated Troponin Hypertension/HDD NH 2D Dimensions IVC: 15.00 mm Volumes Left Atrial Volume (Systole) Single Plane 4CH: 44.34 mL Single Plane 2CH: 75.17 mL LA ESV Index: 35.00 mL/m2 Aortic Valve AoV Peak Louis.: 1.74 m/s AO Peak Gr.: 12.15 mmHg LVOT Max P.17 mmHg LVOT Max V: 1.14 m/s AI Vmax: 4.02 m/s AI Ware: 2.63 m/s2 AI PHT: 442.86 ms [facility] [address] [place] [address] 2 D/M-MODE ECHOCARDIOGRAM Name: MARTHA ESTES Room #: 207-P ADM IN M.R.#: [id number] Admission: 08/12/20 Attend Phys: Kendall Espinoza MD Discharge: Date of : 48 Report #: [id number] Mitral Valve E/A Ratio: 0.8 MV Decel. Time: 202.30 ms MV E Max Louis.: 1.23 m/s MV A Louis.: 1.59 m/s MV PHT: 58.67 ms IVRT: 96.89 ms Pulmonary Valve PV Peak Louis.: 1.20 m/s PV Peak Gr.: 5.72 mmHg Pulmonary Vein P Vein S: 0.88 m/s P Vein A: 0.36 m/s P Vein D: 0.52 m/s P Vein A Dur.: 133.8 msec P Vein S/D Ratio: 1.69 Tricuspid Valve TR Peak Louis.: 3.71 m/s TR Peak Gr.: 55.13 mmHg PA Pressure: 55.00 mmHg Left Ventricle The left ventricle is normal size. There is normal LV segmental wall motion. There is normal left ventricular wall thickness. The left ventricular systolic function is normal. The left ventricular ejection fraction is within the normal range. LVEF is 55-60%. Mild diastolic dysfunction Right Ventricle The right ventricle is normal size. The right ventricular systolic function is normal. Atria Left atrium is dilated. Right atrium is dilated. Aortic Valve The aortic valve is sclerotic. Mild aortic regurgitation. There is no aortic valvular stenosis. Mitral Valve The mitral valve is normal in structure. Mild mitral regurgitation. No evidence of mitral valve stenosis. Tricuspid Valve The tricuspid valve is normal in structure. There is mild tricuspid regurgitation. Estimated PAP 55mmHg. [facility] [address] [place] [address] 2 D/M-MODE ECHOCARDIOGRAM Name: MARTHA ESTES Room #: 207-[facility] IN [facility].#: [id number] Admission: 08/12/20 Attend Phys: Kendall Espinoza MD Discharge: Date of : 48 Report #: [id number] Pulmonic Valve The pulmonary valve is normal in structure. There is no pulmonic valvular regurgitation. Great Vessels The aortic root is normal in size. IVC is normal in size and collapses >50% with inspiration. Pericardium There is no pericardial effusion. <Conclusion> The left ventricular systolic function is normal. There is normal LV segmental wall motion. LVEF is 55-60%. Mild diastolic dysfunction Both atria are dilated. The aortic valve is sclerotic. Mild aortic regurgitation, no stenosis. The mitral valve is normal in structure. Mild mitral regurgitation. There is mild tricuspid regurgitation. Estimated pulmonary artery pressure of 55mmHg. There is no pericardial effusion. <ELECTRONICALLY SIGNED> By: Grey Kendall MD, [facility] 08/13/201642 42 42 Grey Kendall MD, [facility] /INF
--- NOTE | 2020-08-13 19:43 | NUR ---
PT DID COMPLAIN OF ABDOMINAL PAIN AND PRN MEDS OFFERED BUT SHE REFUSED. STATED SPRIT ALWAYS. SHE HAS HAD LAXATIVE TODAY. AWAITING TO SEE EFFECTIVE. SHE DID GO SEE HER WHO IS ON ANOTHER FLOOR. UP AD TIFFANIE. GAIT IS STEADY. WILL CONT WITH PLAN OF CARE.
[2020-08-13 19:45] VITALS: BP 156/55
[2020-08-14 03:30] VITALS: BP 148/50
--- NOTE | 2020-08-14 05:04 | NUR ---
PT MAKING PROGRESS TOWARDS GOALS. PT REPORTING THAT SHE HAD FELT NAUSEATED FOR MUCH OF THE DAY TIME. DID GIVEN ONE DOSE OF ZOFRAN WHICH RESOLVED THE NAUSEA. HAD DENIED ANY NAUSEA SINCE THAT TIME. ALSO HAS DENIED ANY CHEST PAIN OVERNIGHT.
[2020-08-14 05:55] LABS: CALCIUM 9.1 mg/dL (8.5-10.1); CREATININE 1.6 mg/dL (0.6-1.0); POTASSIUM 4.7 mmol/L (3.5-5.1)
[2020-08-14 07:50] VITALS: BP 151/77
[2020-08-14] MEDS ORDERED: EFFIENT10 MG PO (08:54)
[2020-08-14] MEDS ORDERED: LOPRESSOR50 PO (08:54)
[2020-08-14 11:57] VITALS: BP 151/77
--- NOTE | 2020-08-14 12:00 | EKG ---
[place] [address] [place] [address] ELECTROCARDIOGRAM REPORT Name: MARTHA ESTES Room #: 207- ADM IN .R.#: [id number] Admission: 08/12/20 Attend Phys: Kendall Espinoza MD Discharge: Date of : 48 Report #: [id number] [facility] Test Date: 2020-08-14 Test Time: 07:14:52 Pat Name: MARTHA ESTES Department: Room: 207 P Gender: F Towing Pilot: CATARINA : 1950 Requested By: Grey Kendall Order Number: [id number] MD: Pedro Davis Measurements Intervals [place] Rate: 97 P: 63 DE: 127 QRS: 60 QRSD: 76 T: 9 QT: 378 QTc: 480 Interpretive Statements Sinus rhythm LAE, consider biatrial enlargement Abnormal R-wave progression, late transition Borderline repolarization abnormality Baseline wander in lead(s) I,II,aVR,aVL Compared to ECG 08/13/2020 07:08:21 Poor R-wave progression no longer present Electronically Signed On 08-14-2020 12:00:15 CDT by Pedro Davis [email or web address] <ELECTRONICALLY SIGNED> By: Pedro Davis MD, [facility] 08/14/20 1200 3 3 Pedro Davis MD, [facility] /EPI
--- NOTE | 2020-08-14 12:41 | NUR ---
ASSUMED CARE SHIFT CHANGE. ASSESSMENTS CHARTED.MEDS GIVEN. VSS. R GROIN SITE REMAINS CDI, NO HEMATOMA. CONTRERAS BRUIT NOTED, RELAYED TO MEDICINE ASSISTANT, NO NEW ORDERS. DC DISCUSSED WITH PT. COMMUNCIATES UNDERSTANDING. PT LEFT UNIT ACCOMPANIED BY SPOUSE. IV REMOVED. TELE REMOVED.
== END 2020-08-14 12:36 | disposition home or self-care (01) | DRG 246 ==
LOC: ER 10:42 → TBA 11:54 → 2N 11:54
PROVIDERS: Emergency Medicine; Internal Medicine; Nurse Practitioner; ADMIT Hospitalist; ATTEND Hospitalist
PROC: B211YZZ Fluoroscopy of Multiple Coronary Arteries using Other Contrast (ICD-10-PCS; principal; 2020-08-12)
PROC: 4A023N7 Measurement of Cardiac Sampling and Pressure, Left Heart, Percutaneous Approach (ICD-10-PCS; principal; 2020-08-12)
PROC: B215YZZ Fluoroscopy of Left Heart using Other Contrast (ICD-10-PCS; principal; 2020-08-12)
PROC: 027034Z Dilation of Coronary Artery, One Artery with Drug-eluting Intraluminal Device, Percutaneous Approach (ICD-10-PCS; principal; 2020-08-12)
DX: I21.4 Non-ST elevation (NSTEMI) myocardial infarction (principal); R65.11 Systemic inflammatory response syndrome (SIRS) of non-infectious origin with acute organ dysfunction; N17.9 Acute kidney failure, unspecified; I16.0 Hypertensive urgency; E11.40 Type 2 diabetes mellitus with diabetic neuropathy, unspecified; M06.9 Rheumatoid arthritis, unspecified; E11.22 Type 2 diabetes mellitus with diabetic chronic kidney disease; E78.5 Hyperlipidemia, unspecified; N18.9 Chronic kidney disease, unspecified; I12.9 Hypertensive chronic kidney disease with stage 1 through stage 4 chronic kidney disease, or unspecified chronic kidney disease; E66.9 Obesity, unspecified; I25.110 Atherosclerotic heart disease of native coronary artery with unstable angina pectoris; D64.9 Anemia, unspecified; Z82.49 Family history of ischemic heart disease and other diseases of the circulatory system; I25.2 Old myocardial infarction; Z88.6 Allergy status to analgesic agent; Z88.8 Allergy status to other drugs, medicaments and biological substances; Z95.5 Presence of coronary angioplasty implant and graft; Z68.32 Body mass index [BMI] 32.0-32.9, adult; Z87.891 Personal history of nicotine dependence; Z79.82 Long term (current) use of aspirin; Z79.899 Other long term (current) drug therapy
CPT/HCPCS: 10081; 10797

== ENCOUNTER → 2020-09-14 | Outpatient (CLI) | payer OTHER ==
[~2020-09-14] MED LIST changes: +ARAVA20 MG PO
== END ==
LOC: SJCVC 13:29
PROVIDERS: ATTEND Internal Medicine
DX: R94.31 Abnormal electrocardiogram [ECG] [EKG] (principal); I25.10 Atherosclerotic heart disease of native coronary artery without angina pectoris; E78.5 Hyperlipidemia, unspecified; E11.22 Type 2 diabetes mellitus with diabetic chronic kidney disease; I12.9 Hypertensive chronic kidney disease with stage 1 through stage 4 chronic kidney disease, or unspecified chronic kidney disease; N18.30 Chronic kidney disease, stage 3 unspecified; I34.0 Nonrheumatic mitral (valve) insufficiency; Z79.82 Long term (current) use of aspirin; Z79.899 Other long term (current) drug therapy; Z88.5 Allergy status to narcotic agent; Z88.8 Allergy status to other drugs, medicaments and biological substances

== ENCOUNTER → 2021-05-19 | Outpatient (CLI) | payer OTHER | LOC: SJCVC 13:09 | PROVIDERS: ATTEND Internal Medicine | DX: R94.31 Abnormal electrocardiogram [ECG] [EKG] (principal); I25.10 Atherosclerotic heart disease of native coronary artery without angina pectoris; I12.9 Hypertensive chronic kidney disease with stage 1 through stage 4 chronic kidney disease, or unspecified chronic kidney disease; E11.22 Type 2 diabetes mellitus with diabetic chronic kidney disease; N18.30 Chronic kidney disease, stage 3 unspecified; E78.5 Hyperlipidemia, unspecified; Z95.5 Presence of coronary angioplasty implant and graft; Z82.49 Family history of ischemic heart disease and other diseases of the circulatory system; Z72.89 Other problems related to lifestyle; Z87.891 Personal history of nicotine dependence; Z88.8 Allergy status to other drugs, medicaments and biological substances; Z79.82 Long term (current) use of aspirin; Z79.4 Long term (current) use of insulin; Z79.899 Other long term (current) drug therapy ==